=== PATIENT | female | born 1970 | race Caucasian/White ===

== ENCOUNTER 2016-08-27 22:45 | Emergency (ER) | payer MEDICARE, MEDICAID ==
[2016-08-27] MEDS ORDERED: NS 0.9% 1000 ML* 1,000 ML IV ONE (23:52)
[2016-08-27] MEDS ORDERED: Morphine INJ* 2 MG/ML 1 ML CARPUJECT IV ONE (23:52)
[2016-08-27] MEDS ORDERED: Ondansetron INJ* 2 MG/ML VIAL IV ONE (23:52)
[2016-08-28 00:45] LABS: Hematocrit 44 % (35-47); Hemoglobin 14.4 g/dl (12.0-16.0); Mean Corpuscular HGB Conc 33 g/dl (31-36); Mean Corpuscular Hemoglobin 30 pg (27-31); Mean Corpuscular Volume 92 fL (80-97); Mean Platelet Volume 9 um3 (7.4-10.4); Red Blood Count 4.76 10^6/ul (4.0-5.4); Red Cell Distribution Width 14 % (10.5-15); White Blood Count 10.9 10^3/ul (3.5-10.8)
[2016-08-28 00:53] LABS: ALT 10 U/L (7-52); AST 14 U/L (13-39); Albumin 3.9 g/dL (3.2-5.2); Alkaline Phosphatase 58 U/L (34-104); Anion Gap 6 mmol/L (2-11); BUN/Creatinine Ratio 11.6 (8-20); Blood Urea Nitrogen 14 mg/dL (6-24); CO2 Carbon Dioxide 27 mmol/L (22-32); Calcium 8.6 mg/dL (8.6-10.3); Chloride 106 mmol/L (101-111); EGFR African American 62.2 (>60); EGFR Non-African American 48.3 (>60); Globulin 2.6 g/dL (2-4); Glucose 83 mg/dL (70-100); Lipase 36 U/L (11.0-82.0); Sodium 139 mmol/L (133-145); Total Protein 6.5 g/dL (6.4-8.9)
[2016-08-28 00:56] LABS: Troponin I 0.01 ng/mL (<0.04)
[2016-08-28 00:59] LABS: Urine Bacteria Absent (Absent); Urine Bilirubin Negative (Negative); Urine Glucose Negative (Negative); Urine Nitrite Negative (Negative)
[2016-08-28] MEDS ORDERED: Iodixanol* (CONTRAST) 320 MG/ML 100 ML SDV IV ONE (01:53)
[2016-08-28 03:34] VITALS: BP 130/65
--- NOTE | 2016-08-28 03:44 | ED ---
Eden Pisano SooYoung, scribed for Shailesh Naik on 08/27/16 at 2349 . Abdominal Pain/Female - HPI Summary HPI Summary: A 45 y/o F presents to ED with c/o diffuse abd pain onset "a few days ago." Associated sx: vomiting, dysuria. Denies SOB, CP. No PSHx. Denies smoking, EtOH use. Pert PMHx: ulcers, GERD. - History of Current Complaint Chief Complaint: EDAbdPain Stated Complaint: ABD PAIN,PAIN WITH URINATION Hx Obtained From: Patient Onset/Duration: Lasting Days, Still Present Severity Currently: Moderate Pain Intensity: 5 Pain Scale Used: 0-10 Numeric Location: Diffuse Associated Signs and Symptoms: Positive: Urinary Symptoms - dysuria, Vomiting, Other: - neg: SOB. Negative: Chest Pain Allergies/Adverse Reactions: Allergies Allergy/AdvReac Type Severity Reaction Status Date / Time No Known Allergies Allergy Verified 08/27/16 22:46 PMH/Surg Hx/FS Hx/Imm Hx Previously Healthy: No GI History: Reports: Hx Gastroesophageal Reflux Disease, Hx Ulcer Infectious Disease History: No Infectious Disease History: Denies: Traveled Outside the [place] in Last 30 Days - Family History Known Family History: Positive: Cardiac Disease - father , Diabetes, Renal Disease - mother kidney failure, Other - [place] - Social History Occupation: Unemployed Lives: Alone Alcohol Use: None Hx Tobacco Use: No Review of Systems Negative: Chest Pain Negative: Shortness Of Breath Positive: Abdominal Pain, Vomiting Positive: dysuria All Other Systems Reviewed And Are Negative: Yes Physical Exam Triage Information Reviewed: Yes Vital Signs On Initial Exam: Initial Vitals Temp Pulse Resp BP Pulse Ox 99.6 F 64 18 114/56 95 08/27/16 22:46 08/27/16 22:46 08/27/16 22:46 08/27/16 22:46 08/27/16 22:46 Vital Signs Reviewed: Yes Appearance: Positive: Well-Appearing, No Pain Distress Skin: Positive: Warm, Skin Color Reflects Adequate Perfusion, Dry Head/Face: Positive: Normal Head/Face Inspection Eyes: Positive: EOMI, UMA ENT: Positive: Normal ENT inspection Neck: Positive: Supple, Nontender Respiratory/Lung Sounds: Positive: Clear to Auscultation, Breath Sounds Present Cardiovascular: Positive: RRR, Pulses are Symmetrical in both Upper and Lower Extremities Abdomen Description: Positive: Soft, Other: - POS: TENDERNESS AT RUQ and RLQ Bowel Sounds: Positive: Present Musculoskeletal: Positive: Normal, Strength/ROM Intact - 4XFROM Neurological: Positive: Normal, Sensory/Motor Intact, Alert, Oriented to Person Place, Time Diagnostics - Vital Signs Vital Signs Temp Pulse Resp BP Pulse Ox 08/27/16 22:46 99.6 F 64 18 114/56 95 - Laboratory Result Diagrams: 08/28/16 00:10 08/28/16 00:10 Lab Statement: Any lab studies that have been ordered have been reviewed, and results considered in the medical decision making process. - Radiology CXR Xray Interpretation: No Acute Changes Radiology Interpretation Completed By: ED Physician - CT A/P CT CT Interpretation: No Acute Changes - IMPRESSION: No inflammatory process identified in the abd or pelvis. No abd mass, adenopathy or collection seen. No explanation for this pt's abd pain. CT Interpretation Completed By: Radiologist - Ultrasound No standard instances Ultrasound Interpretation: Positive (See Comments) - GALLBLADDER US, IMPRESSION : Hyperechoic lesion in the R lobe of liver likely hemangioma. Otherwise nml appearance of the liver. Suboptimally distended gallbladder otherwise unremarkable. CBD wnl. Normal appearance of the R kidney. Limited pancreas. Visualized parenchyma is unremarkable. Ultrasound Interpretation Completed By: Radiologist - EKG 1 EKG Rhythm: Sinus Bradycardia Abdominal Pain Fem Course/Dx - Course Course Of Treatment: MDM: Pt is a 45 y/o F with abd pain, vomiting, and dysuria. Denies SOB, CP. Pt given Zofran and Morphine. A/P CT, Gallbladder US, EKG, CXR ordered. Dx: unspecified abd pain. Pt will be D/C with Protonix, and told to f/u with PCP in 3 days. - Diagnoses Provider Diagnoses: Pain, abdominal, nonspecific Discharge - Discharge Plan Condition: Stable Disposition: HOME Prescriptions: Pantoprazole TAB (NF) [Protonix TAB (NF)] 40 mg PO DAILY #30 tab Patient Education Materials: Pantoprazole (By mouth), Abdominal Pain (ED) Referrals: Amilcar Morris MD [Primary Care Provider] - 3 Days Additional Instructions: Follow up with your primary care provider in 3 days. Please return if you have new or worsening symptoms. The documentation as recorded by the Eden maguire,SooYoung accurately reflects the service I personally performed and the decisions made by me, Shailesh Naik.
--- NOTE | 2016-08-28 07:48 | RAD ---
HISTORY: Abdominal pain, pain with urination COMPARISONS: None VIEWS: 2: Frontal dual-energy and lateral views of the chest. FINDINGS: CARDIOMEDIASTINAL SILHOUETTE: The cardiomediastinal silhouette is normal. SUSANNA: The susanna are normal. PLEURA: The costophrenic angles are sharp. No pleural abnormalities are noted. LUNG PARENCHYMA: The lungs are clear. ABDOMEN: The upper abdomen is clear. There is no subphrenic gas. BONES AND SOFT TISSUES: No bone or soft tissue abnormalities are noted. OTHER: None. IMPRESSION: NO ACTIVE CARDIOPULMONARY DISEASE.
--- NOTE | 2016-08-28 07:53 | RAD ---
HISTORY: Generalized abdominal pain COMPARISONS: None TECHNIQUE: Multiple transverse and longitudinal ultrasound images were obtained of the right upper quadrant of the abdomen using grayscale and color Doppler imaging. FINDINGS: LIVER: There is a hypoechoic focus within the right lobe measuring 1.5 cm, suggestive of a hemangioma. There is normal hepatopedal flow of the portal vein on Doppler imaging. BILIARY TREE: There is no intrahepatic or extrahepatic biliary dilatation. The common duct measures between 0.3 and 0.7 cm. GALLBLADDER: The gallbladder is incompletely distended and is not well visualized. There is no appreciable pericholecystic fluid or gallbladder wall thickening or cholelithiasis. No sonographic Elias sign is reported. PANCREAS: The head of the pancreas is unremarkable. The tail of the pancreas is not well visualized secondary to overlying bowel gas. RIGHT KIDNEY: There is a parapelvic simple cyst on the right. There is no hydronephrosis or nephrolithiasis. The right kidney measures 9.5 x 4.4 x 5.2 cm. AORTA AND IVC: The aorta and IVC are unremarkable. FLUID: There are no pleural effusions. There is no free fluid within the hepatorenal recess. OTHER FINDINGS: None. IMPRESSION: 1. THE GALLBLADDER IS CONTRACTED WHICH LIMITS EVALUATION. THERE ARE NO SONOGRAPHIC FEATURES OF ACUTE CHOLECYSTITIS. 2. HYPERECHOIC LESION OF THE LIVER MOST CONSISTENT WITH HEMANGIOMA
--- NOTE | 2016-08-28 08:02 | RAD ---
CLINICAL HISTORY: Lower abdominal pain, burning with urination COMPARISON: None TECHNIQUE: Multiple contiguous axial CT scans were obtained of the abdomen and pelvis after the administration of intravenous contrast. Coronal and sagittal multiplanar reformations are submitted for review. Oral contrast was administered. Delayed images were obtained through the abdomen FINDINGS: LUNG BASES: The lung bases are clear. LIVER: There is focal hypoattenuation of the right lobe of liver measuring 1.4 cm in size. This density is minimal peripheral enhancement BILE DUCTS: There is no intrahepatic or extrahepatic biliary dilatation. GALLBLADDER: The gallbladder it is incompletely and is not well evaluated, but is grossly normal for technique. PANCREAS: The pancreas is normal, without mass or ductal dilatation. SPLEEN: Normal in size and appearance. UPPER GI TRACT: Evaluation of the gastrointestinal tract is limited by incomplete gastric distention. The upper GI tract is unremarkable. SMALL BOWEL AND MESENTERY: The small bowel is normal in contour, course, and caliber. There is no obstruction or dilatation. COLON: The colon is normal in contour, course, caliber. There is no pericolonic inflammatory change. The appendix not clearly identified. There is no inflammatory change within the right lower quadrant. ADRENALS: Normal bilaterally. KIDNEYS: The kidneys are normal in shape, size, contour, and axis. There is no hydronephrosis or nephrolithiasis. BLADDER: The bladder is smooth in contour. PELVIC ORGANS: There is a 2 cm cyst of the left ovary. This may represent a hemorrhagic cyst. The pelvic organs are otherwise normal for patient age and technique. AORTA: The aorta is normal. IVC: Unremarkable LYMPH NODES: There is no lymphadenopathy by size criteria. ABDOMINAL WALL: There is no evidence for abdominal wall hernia. BONES AND SOFT TISSUES: There are mild degenerative changes, most now set L5-S1. OTHER: None IMPRESSION: 1. THE APPENDIX IS NOT VISUALIZED. THERE IS NO INFLAMMATORY CHANGE OF THE RIGHT LOWER QUADRANT. 2. LEFT OVARIAN CYST, POSSIBLY HEMORRHAGIC CYST. 3. LOW-ATTENUATION LESION OF THE LIVER THAT MAY REPRESENT A SMALL HEMANGIOMA, THOUGH THE IMAGING APPEARANCE IS INDETERMINATE.
== END 2016-08-28 03:20 | disposition home or self-care (01) ==
LOC: ED 22:45
DX: R10.9 Unspecified abdominal pain (principal); K21.9 Gastro-esophageal reflux disease without esophagitis
CPT/HCPCS: 36415; 71020; 74177; 76705; 80053; 81003; 81015; 83690; 84484; 84702; 85025; 85610; 85730; 87086; 93005; 99284; J2270; J2405; Q9967

== ENCOUNTER 2016-09-01 04:44 | Emergency (ER) | payer MEDICARE, MEDICAID ==
[2016-09-01] MEDS ORDERED: Ondansetron ODT TAB* 4 MG PO ONE ×2 (05:01→06:00)
[2016-09-01] MEDS ORDERED: Ondansetron ODT TAB* 4 MG ONE (05:03)
--- NOTE | 2016-09-01 05:58 | ED ---
Candida Pisano Janilya, scribed for Elder Serrano MD on 09/01/16 at 0506 . GI/ HPI - HPI Summary HPI Summary: A 45 y/o female came in to [facility] presenting w/ a gradual onset of constant nausea, vomiting, diarrhea starting approximately at 0300 this morning. Up to this time, pt states she has thrown up twice and has had diarrhea also twice. Pt reports she took Tums with no relief. Nothing makes the Sx better or worse. Last night, she had pork chops and casserole for dinner. - History of Current Complaint Chief Complaint: EDNauseaVomitDiarrh Time Seen by Provider: 09/01/16 04:57 Stated Complaint: FLU LIKE SYMPTOMS Hx Obtained From: Patient Onset/Duration: Started Hours Ago, Atraumatic, Still Present Timing: Constant, Lasting Hours Severity: Moderate Current Severity: Moderate Pain Intensity: 6 Associated Signs and Symptoms: Positive: Nausea, Vomiting, Diarrhea Aggravating Factor(s): Nothing Alleviating Factor(s): Nothing - Allergy/Home Medications Allergies/Adverse Reactions: Allergies Allergy/AdvReac Type Severity Reaction Status Date / Time No Known Allergies Allergy Verified 08/27/16 22:46 PMH/Surg Hx/FS Hx/Imm Hx Previously Healthy: Yes Endocrine/Hematology History: Denies: Hx Diabetes Cardiovascular History: Denies: Hx Hypertension GI History: Reports: Hx Gastroesophageal Reflux Disease, Hx Ulcer History: Denies: Hx Dialysis, Hx Renal Disease Infectious Disease History: No Infectious Disease History: Denies: Traveled Outside the [place] in Last 30 Days - Family History Known Family History: Positive: Cardiac Disease - father , Diabetes, Renal Disease - mother kidney failure, Other - [place] - Social History Alcohol Use: None Substance Use Type: Reports: None Substance Use Comment - Amount & Last Used: pt denies Hx Tobacco Use: No Smoking Status (MU): Never Smoked Tobacco Review of Systems Negative: Fever Positive: Vomiting, Diarrhea, Nausea All Other Systems Reviewed And Are Negative: Yes Physical Exam Triage Information Reviewed: Yes Vital Signs On Initial Exam: Initial Vitals Temp Pulse Resp BP Pulse Ox 98.4 F 66 16 116/67 99 09/01/16 04:49 09/01/16 04:49 09/01/16 04:49 09/01/16 04:49 09/01/16 04:49 Vital Signs Reviewed: Yes Appearance: Positive: Well-Appearing, No Pain Distress - malodorous Skin: Positive: Warm Eyes: Positive: UMA ENT: Positive: Hearing grossly normal Neck: Positive: Supple Respiratory/Lung Sounds: Positive: Breath Sounds Present Cardiovascular: Positive: Normal Abdomen Description: Positive: Nontender, No Organomegaly, Soft Bowel Sounds: Positive: Present Musculoskeletal: Positive: Strength/ROM Intact Neurological: Positive: Alert, Oriented to Person Place, Time Diagnostics - Vital Signs Vital Signs Temp Pulse Resp BP Pulse Ox 09/01/16 04:49 98.4 F 66 16 116/67 99 - Laboratory Lab Statement: Any lab studies that have been ordered have been reviewed, and results considered in the medical decision making process. Re-Evaluation - Re-Evaluation First Eval Re-Evaluation Time: 05:59 - tolerating po Change: Improved GIGU Course/Dx - Diagnoses Provider Diagnoses: Gastroenteritis Discharge - Discharge Plan Condition: Improved Disposition: HOME Patient Education Materials: Gastroenteritis (ED) The documentation as recorded by the Candida maguire Janilya accurately reflects the service I personally performed and the decisions made by Zach maurer David, MD.
[2016-09-01 06:42] VITALS: BP 126/96
== END 2016-09-01 06:42 | disposition home or self-care (01) ==
LOC: ED 04:44
DX: K52.9 Noninfective gastroenteritis and colitis, unspecified (principal); F41.9 Anxiety disorder, unspecified; K21.9 Gastro-esophageal reflux disease without esophagitis
CPT/HCPCS: 99283; A9270-GY

== ENCOUNTER 2016-09-01 18:54 | Emergency (ER) | payer MEDICARE, MEDICAID ==
[2016-09-01] MEDS ORDERED: Ondansetron ODT TAB* 4 MG PO ONE (21:58)
--- NOTE | 2016-09-01 22:08 | ED ---
Complex/Multi-Sys Presentation - HPI Summary HPI Summary: 45 female presents complaining of having an anxiety attack, nausea and feeling very cold that started today 09/01/16. Patient states she has been dealing with anxiety all day today intermittently. She feels tightness in her chest that lasts a few seconds and goes away. She complains of feeling cold and being unable to get warm. She also is nauseous that she states is from the anxiety. She denies difficulty breathing, abdominal pain, vomiting, constipation, fever/ chills, numbness/tingling and shaking. Admits to having headaches on and off. She does not know why she is having anxiety and denies any stressors. States she was in the ED last night and was given anti nausea medication that helped her but was not given anything for her anxiety. She was also seen on 08/28/16 for abdominal pain and diagnosed with ulcers/gerd after throughout testing. Denies use of alcohol and drugs. Denies suicidal homicidal thoughts. PMHx of ulcer, GERD and anxiety since last year when her boyfriend . She was taking Lorazepam however has been out of it for the past month. - History Of Current Complaint Chief Complaint: EDGeneral Time Seen by Provider: 09/01/16 21:01 Hx Obtained From: Patient Onset/Duration: Sudden Onset Timing: Intermittent, Lasting: Severity Currently: Mild Severity Initially: Mild Associated Signs And Symptoms: Positive: Headache, Nausea, Other - cold. Negative: Chest Pain, Palpitations, Fever - Allergies/Home Medications Allergies/Adverse Reactions: Allergies Allergy/AdvReac Type Severity Reaction Status Date / Time No Known Allergies Allergy Verified 08/27/16 22:46 PMH/Surg Hx/FS Hx/Imm Hx Endocrine/Hematology History: Denies: Hx Diabetes Cardiovascular History: Denies: Hx Hypertension GI History: Reports: Hx Gastroesophageal Reflux Disease, Hx Ulcer History: Denies: Hx Dialysis, Hx Renal Disease Psychiatric History: Reports: Hx Anxiety Infectious Disease History: No Infectious Disease History: Denies: Traveled Outside the [place] in Last 30 Days - Family History Known Family History: Positive: Cardiac Disease - father , Diabetes, Renal Disease - mother kidney failure, Other - [place] - Social History Alcohol Use: None Substance Use Type: Reports: None Substance Use Comment - Amount & Last Used: pt denies Hx Tobacco Use: No Smoking Status (MU): Never Smoked Tobacco Review of Systems Constitutional: Negative Eyes: Negative ENT: Negative Cardiovascular: Negative Respiratory: Negative Positive: Nausea, Other - she's cold Genitourinary: Negative Musculoskeletal: Negative Skin: Negative Positive: Headache Positive: Anxious, Depressed All Other Systems Reviewed And Are Negative: Yes Physical Exam Triage Information Reviewed: Yes Vital Signs On Initial Exam: Initial Vitals Temp Pulse Resp BP Pulse Ox 97.6 F 59 22 136/96 100 09/01/16 18:59 09/01/16 18:59 09/01/16 18:59 09/01/16 18:59 09/01/16 18:59 temperature was re-checked and 98.6 F taken orally Vital Signs Reviewed: Yes Appearance: Positive: Well-Appearing - A&Ox3, appeared to un-bathed, covered under multiple blankets, No Pain Distress, Well-Nourished Skin: Positive: Warm, Skin Color Reflects Adequate Perfusion, Dry Head/Face: Positive: Normal Head/Face Inspection Eyes: Positive: Normal ENT: Positive: Normal ENT inspection, Hearing grossly normal, Pharynx normal, TMs normal Neck: Positive: Supple, Nontender, No Lymphadenopathy Respiratory/Lung Sounds: Positive: Clear to Auscultation, Breath Sounds Present Cardiovascular: Positive: Normal, RRR, Pulses are Symmetrical in both Upper and Lower Extremities Abdomen Description: Positive: Nontender, No Organomegaly, Soft Bowel Sounds: Positive: Present Musculoskeletal: Positive: Normal Neurological: Positive: Normal, Sensory/Motor Intact, Alert, Oriented to Person Place, Time Psychiatric: Positive: Depressed Diagnostics - Vital Signs Vital Signs Temp Pulse Resp BP Pulse Ox 09/01/16 20:32 100.6 F 65 18 98/68 100 09/01/16 18:59 97.6 F 59 22 136/96 100 - Laboratory Lab Statement: Any lab studies that have been ordered have been reviewed, and results considered in the medical decision making process. Re-Evaluation - Re-Evaluation First Eval Re-Evaluation Time: 22:46 Change: Improved - relief after medications administered Complex Multi-Symp Course/Dx Course Of Treatment: Patient was given zofran and a small dose of ativan to help with her symptoms. told to follow up with her doctor that prescribed her the lorzepam before. offered to meet with the crisis team however denied and stated she would talk to her doctor during her appointment this thursday. will be given zofran to take home for nausea. Patient was seen earlier this morning by Dr Cherry and had to be escorted out of the hospital. - Diagnoses Provider Diagnoses: Anxiety Discharge - Discharge Plan Condition: Stable Disposition: HOME Prescriptions: Ondansetron ODT TAB* [Zofran Odt TAB*] 4 mg PO Q8H PRN #5 tab.odt PRN Reason: Nausea Patient Education Materials: Anxiety (ED) Referrals: No Primary Care Phys,NOPCP [Primary Care Provider] - Additional Instructions: Take medication as prescribed to help with nausea. Please follow up with your primary care provider Thursday09/03/16 and get a referral to a psychiatrist to help manage your anxiety. If symptoms persist or worsen such as chest pain or difficulty breathing please return to ED.
[2016-09-01] MEDS ORDERED: LORazepam TAB(*) 0.5 MG PO ONE (22:12)
[2016-09-01 23:19] VITALS: BP 113/62
== END 2016-09-01 23:10 | disposition home or self-care (01) ==
LOC: ED 18:54
DX: F41.9 Anxiety disorder, unspecified (principal); K21.9 Gastro-esophageal reflux disease without esophagitis
CPT/HCPCS: 99283; A9270-GY

== ENCOUNTER 2016-09-04 22:29 | Emergency (ER) | payer MEDICARE, MEDICAID ==
[2016-09-04 22:37] VITALS: BP 128/70
[2016-09-04] MEDS ORDERED: diPHENhydraMINE PO* 25 MG PO ONE (22:45)
--- NOTE | 2016-09-04 22:49 | ED ---
Roly Pisano Benjamin, scribed for Elder Serrano MD on 09/04/16 at 2247 . Complex/Multi-Sys Presentation - HPI Summary HPI Summary: 45yo female c/o sleep difficulties with anxiety abd vomiting. Pt was seen several times recently for the same symptoms. - History Of Current Complaint Chief Complaint: EDGeneral Time Seen by Provider: 09/04/16 22:38 Hx Obtained From: Patient Onset/Duration: Gradual Onset, Lasting Hours, Still Present Timing: Constant Severity Currently: Mild Severity Initially: Mild Location: Negative Associated Signs And Symptoms: Positive: Vomiting, Other - anxiety - Allergies/Home Medications Allergies/Adverse Reactions: Allergies Allergy/AdvReac Type Severity Reaction Status Date / Time No Known Allergies Allergy Verified 08/27/16 22:46 PMH/Surg Hx/FS Hx/Imm Hx Endocrine/Hematology History: Denies: Hx Diabetes Cardiovascular History: Denies: Hx Hypertension GI History: Reports: Hx Gastroesophageal Reflux Disease, Hx Ulcer History: Denies: Hx Dialysis, Hx Renal Disease Psychiatric History: Reports: Hx Anxiety Infectious Disease History: No Infectious Disease History: Denies: Traveled Outside the [place] in Last 30 Days - Family History Known Family History: Positive: Cardiac Disease - father , Diabetes, Renal Disease - mother kidney failure, Other - [place] - Social History Alcohol Use: None Substance Use Type: Reports: None Substance Use Comment - Amount & Last Used: pt denies Hx Tobacco Use: No Smoking Status (MU): Never Smoked Tobacco Review of Systems Constitutional: Negative Eyes: Negative ENT: Negative Cardiovascular: Negative Respiratory: Negative Positive: Vomiting Genitourinary: Negative Musculoskeletal: Negative Skin: Negative Neurological: Negative Positive: Anxious All Other Systems Reviewed And Are Negative: Yes Physical Exam Triage Information Reviewed: Yes Vital Signs On Initial Exam: Initial Vitals Temp Pulse Resp BP Pulse Ox 98.3 F 70 16 128/70 100 09/04/16 22:34 09/04/16 22:34 09/04/16 22:34 09/04/16 22:34 09/04/16 22:34 Vital Signs Reviewed: Yes Appearance: Positive: Well-Appearing, No Pain Distress Skin: Positive: Warm Eyes: Positive: UMA ENT: Positive: Hearing grossly normal Respiratory/Lung Sounds: Positive: Breath Sounds Present Cardiovascular: Positive: Normal Abdomen Description: Positive: Nontender, Soft Neurological: Positive: Sensory/Motor Intact, Alert, Oriented to Person Place, Time, Normal Gait Diagnostics - Vital Signs Vital Signs Temp Pulse Resp BP Pulse Ox 09/04/16 22:34 98.3 F 70 16 128/70 100 - Laboratory Lab Statement: Any lab studies that have been ordered have been reviewed, and results considered in the medical decision making process. Re-Evaluation - Re-Evaluation First Eval Comment: INFORMED PT THAT SHE WILL NEED TO GET MEDS FPOR ANXIETY FROM PCP, HAS BEEN TO ED SEVERAL TIMRS FOR SAME Complex Multi-Symp Course/Dx - Diagnoses Provider Diagnoses: Anxiety, Insomnia Discharge - Discharge Plan Condition: Stable Disposition: HOME Patient Education Materials: Insomnia (ED), Anxiety (ED) The documentation as recorded by the Roly maguire Benjamin accurately reflects the service I personally performed and the decisions made by me, Elder Serrano MD.
== END 2016-09-04 23:00 | disposition home or self-care (01) ==
LOC: ED 22:29
DX: F41.9 Anxiety disorder, unspecified (principal); R11.10 Vomiting, unspecified; G47.00 Insomnia, unspecified
CPT/HCPCS: 99282; A9270-GY

== ENCOUNTER 2016-09-16 04:13 | Emergency (ER) | payer MEDICARE, MEDICAID ==
[2016-09-16] MEDS ORDERED: Ondansetron ODT TAB* 4 MG PO ONE (04:31)
--- NOTE | 2016-09-16 04:58 | ED ---
London Pisano Rebecca, scribed for Elder Serrano MD on 09/16/16 at 0434 . Abdominal Pain/Female - HPI Summary HPI Summary: Pt is a 45 y/o F who presents to ED c/o sharp abd pain. Pain began suddenly at 0200 and has been constant since onset. Pain is diffuse without radiation and is currently moderate, ranked 4/10. Sx aggravated and alleviated by nothing. Additionally c/o nausea and rhinorrhea. Denies vomiting. - History of Current Complaint Chief Complaint: EDAbdPain Stated Complaint: GENERAL ILLNESS Time Seen by Provider: 09/16/16 04:29 Hx Obtained From: Patient Onset/Duration: Sudden Onset, Lasting Hours - 2.5 hours, Still Present Timing: Constant Severity Initially: Moderate Severity Currently: Moderate Pain Intensity: 4 Pain Scale Used: 0-10 Numeric Location: Diffuse Radiates: No Character: Sharp Aggravating Factor(s): Nothing Alleviating Factor(s): Nothing Associated Signs and Symptoms: Positive: Nausea, Other: - Rhinorrhea Allergies/Adverse Reactions: Allergies Allergy/AdvReac Type Severity Reaction Status Date / Time No Known Allergies Allergy Verified 08/27/16 22:46 PMH/Surg Hx/FS Hx/Imm Hx Endocrine/Hematology History: Denies: Hx Diabetes Cardiovascular History: Denies: Hx Hypertension GI History: Reports: Hx Gastroesophageal Reflux Disease, Hx Ulcer History: Denies: Hx Dialysis, Hx Renal Disease Psychiatric History: Reports: Hx Anxiety Infectious Disease History: No Infectious Disease History: Denies: Traveled Outside the [place] in Last 30 Days - Family History Known Family History: Positive: Cardiac Disease - father , Diabetes, Renal Disease - mother kidney failure, Other - [place] - Social History Alcohol Use: None Substance Use Type: Reports: None Substance Use Comment - Amount & Last Used: pt denies Hx Tobacco Use: No Smoking Status (MU): Never Smoked Tobacco Review of Systems Positive: Nasal Discharge Positive: Abdominal Pain - moderate, diffuse, Nausea. Negative: Vomiting All Other Systems Reviewed And Are Negative: Yes Physical Exam Triage Information Reviewed: Yes Vital Signs On Initial Exam: Initial Vitals Temp Pulse Resp BP Pulse Ox 98.4 F 58 18 132/71 99 09/16/16 04:19 09/16/16 04:19 09/16/16 04:19 09/16/16 04:19 09/16/16 04:19 Vital Signs Reviewed: Yes Appearance: Positive: Well-Appearing, No Pain Distress Skin: Positive: Warm Head/Face: Positive: Normal Head/Face Inspection ENT: Positive: Hearing grossly normal Neck: Positive: Supple Respiratory/Lung Sounds: Positive: Clear to Auscultation, Breath Sounds Present Cardiovascular: Positive: Normal Abdomen Description: Positive: Nontender, No Organomegaly, Soft Bowel Sounds: Positive: Present Neurological: Positive: Alert, Oriented to Person Place, Time Psychiatric: Positive: Anxious Diagnostics - Vital Signs Vital Signs Temp Pulse Resp BP Pulse Ox 09/16/16 04:19 98.4 F 58 18 132/71 99 - Laboratory Lab Statement: Any lab studies that have been ordered have been reviewed, and results considered in the medical decision making process. Re-Evaluation - Re-Evaluation First Eval Change: Improved Abdominal Pain Fem Course/Dx - Course Course Of Treatment: Pt is a 45 y/o F who presents to ED with a CC of sharp, moderate abd pain since 0200 this morning. Additionally c/o nausea and rhinorrhea. Denies vomiting. Both rapid influenza A and B returned negative. Pt will be d/c to home with a dx of nausea and viral syndrome with a follow up with her PCP. Pt is agreeable with this plan. - Diagnoses Provider Diagnoses: Nausea, Viral syndrome Discharge - Discharge Plan Condition: Stable Disposition: HOME Patient Education Materials: Viral Syndrome (ED) Referrals: Arturo ORANTES,Jerome Hess [Primary Care Provider] - 3 Days (Follow up with your primary care physician in the next 3 days. ) The documentation as recorded by the London maguire Rebecca accurately reflects the service I personally performed and the decisions made by , Elder Serrano MD.
[2016-09-16 05:26] VITALS: BP 114/77
== END 2016-09-16 05:34 | disposition home or self-care (01) ==
LOC: ED 04:13
DX: J34.89 Other specified disorders of nose and nasal sinuses (principal); B34.9 Viral infection, unspecified; R11.0 Nausea
CPT/HCPCS: 87502; 99282; A9270-GY

== ENCOUNTER 2016-09-22 11:06 | Emergency (ER) | payer MEDICARE, MEDICAID ==
[2016-09-22 11:40] VITALS: BP 109/72
--- NOTE | 2016-09-22 11:54 | UC ---
Throat Pain/Nasal Madhav HPI - HPI Summary HPI Summary: ST, nasal congestion, cough starting yesterday. Denies fever or trouble breathing. Worried she's coming down with a cold, wants medicine before it gets bad. - History of Current Complaint Chief Complaint: UCGeneralIllness Stated Complaint: COUGH,SINUS COMPLAINT Time Seen by Provider: 09/22/16 11:42 Hx Obtained From: Patient Hx Last Menstrual Period: 09/01/16 ?: No Onset/Duration: Gradual Onset, Lasting Days Severity: Mild Cough: Productive Associated Signs & Symptoms: Positive: Nasal Discharge. Negative: Fever, Vomiting - Allergies/Home Medications Allergies/Adverse Reactions: Allergies Allergy/AdvReac Type Severity Reaction Status Date / Time No Known Allergies Allergy Verified 08/27/16 22:46 PMH/Surg Hx/FS Hx/Imm Hx Endocrine History Of: Denies: Diabetes Cardiovascular History Of: Denies: Hypertension GI/ History Of: Reports: Ulcer Denies: Renal Disease Psychological History Of: Reports: Anxiety - Surgical History Surgical History: None - Family History Known Family History: Positive: Cardiac Disease - father , Diabetes, Renal Disease - mother kidney failure, Other - [place] - Social History Lives: Alone Alcohol Use: None Substance Use Type: None Substance Use Comment - Amount & Last Used: pt denies Smoking Status (MU): Never Smoked Tobacco Review of Systems Constitutional: Negative Skin: Negative Eyes: Negative ENT: Sore Throat, Nasal Discharge Respiratory: Cough Cardiovascular: Negative Gastrointestinal: Negative Genitourinary: Negative Motor: Negative Neurovascular: Negative Musculoskeletal: Negative Neurological: Negative Psychological: Negative All Other Systems Reviewed And Are Negative: Yes Physical Exam Triage Information Reviewed: Yes Appearance: No Pain Distress, Well-Nourished, Other: - poor grooming, strong body odor Vital Signs: Initial Vital Signs Temp 98.9 F 09/22/16 11:35 Pulse 60 09/22/16 11:35 Resp 16 09/22/16 11:35 BP 109/72 09/22/16 11:35 Pulse Ox 99 09/22/16 11:35 Vital Signs Reviewed: Yes Eye Exam: Normal Eyes: Positive: Conjunctiva Clear ENT: Positive: Hearing grossly normal, Nasal congestion, Nasal drainage, TMs normal. Negative: Tonsillar swelling, Tonsillar exudate Dental Exam: Normal Neck exam: Normal Neck: Positive: Supple, Nontender, No Lymphadenopathy Respiratory Exam: Normal Respiratory: Positive: Chest non-tender, Lungs clear, Normal breath sounds, No respiratory distress, No accessory muscle use Cardiovascular Exam: Normal Cardiovascular: Positive: RRR, No Murmur Musculoskeletal Exam: Normal Neurological Exam: Normal Psychological Exam: Normal Skin Exam: Normal Throat Pain/Nasal Course/Dx - Differential Dx/Diagnosis Provider Diagnoses: URI, likely viral Discharge - Discharge Plan Condition: Stable Disposition: HOME Patient Education Materials: Upper Respiratory Infection (ED) Referrals: Arturo ORANTES,Jerome Hess [Primary Care Provider] - If Needed Additional Instructions: a DECONGESTANT can help with your stuffiness and sinuses. The most effective decongestant is Pseudoephedrine (Sudafed or generic), but you need to ask the pharmacist as it is kept behind the counter. ANTIHISTAMINES are generally NOT helpful in many colds and flus, as they can worsen sore throat and cause dry eyes/mouth and drowsiness. Antihistamines are nearly always found in "nighttime" medicines for their sedating properties ( such as Nyquil). Examples are Diphenhydramine HCL, Doxylamine, and Chlorpheniramine. They may help if you are having profuse clear drainage from the nose. an EXPECTORANT helps thin mucous in the nose and in the chest, making it easier to clear out. Expectorants are in most combination cough/cold remedies and should be taken with plenty of water. Guaifenesin is the most common expectorant , and comes in pill or liquid form (Mucinex is an extended-release form of guaifenesin). a COUGH SUPPRESSANT reduces the body's cough reflex. Dextromethorphan is in over -the-counter products, but sometimes narcotics (such as codeine or hydrocodone) are used for their cough suppressant properties.
== END 2016-09-22 12:01 | disposition home or self-care (01) ==
LOC: UCCORT 11:06
DX: J06.9 Acute upper respiratory infection, unspecified (principal)
CPT/HCPCS: 99211; G0463

== ENCOUNTER 2016-09-29 22:44 | Emergency (ER) | payer MEDICARE, MEDICAID ==
[2016-09-29] MEDS ORDERED: Acetaminophen TAB* 325 MG PO ONE (23:31)
--- NOTE | 2016-09-29 23:58 | ED ---
Ursula Pisano Erika, scribed for Elder Serrano MD on 09/29/16 at 2335 . Headache - HPI Summary HPI Summary: Patient is a 45-year-old female presenting to the ED with a CC of headache today. Patient reports that she has taking 1600 mg ibuprofen for the pain, but it has not alleviated the pain. Patient also reports abdominal pain with a Hx GERD. Pt reports she has been taking her GERD medication without relief, and she saw her PCP on 09/26/2016 who recommended she keep taking her medication for at least 1 month to see if symptoms improve. - History Of Current Complaint Chief Complaint: ED Stated Complaint: HEADACHE Hx Obtained From: Patient Hx Last Menstrual Period: 09/01/16 Onset/Duration: Gradual Onset, Started hours ago, Still Present Currently Pain Is: Moderate Timing: Constant Character: Typical Headache Allevating Factors: Nothing Associated Signs And Symptoms: Negative - Allergies/Home Medications Allergies/Adverse Reactions: Allergies Allergy/AdvReac Type Severity Reaction Status Date / Time No Known Allergies Allergy Verified 08/27/16 22:46 PMH/Surg Hx/FS Hx/Imm Hx Endocrine/Hematology History: Denies: Hx Diabetes Cardiovascular History: Denies: Hx Hypertension GI History: Reports: Hx Gastroesophageal Reflux Disease, Hx Ulcer History: Denies: Hx Dialysis, Hx Renal Disease Psychiatric History: Reports: Hx Anxiety Infectious Disease History: No Infectious Disease History: Denies: Traveled Outside the [place] in Last 30 Days - Family History Known Family History: Positive: Cardiac Disease - father , Diabetes, Renal Disease - mother kidney failure, Other - [place] - Social History Alcohol Use: None Substance Use Type: Reports: None Substance Use Comment - Amount & Last Used: pt denies Hx Tobacco Use: No Smoking Status (MU): Never Smoked Tobacco Review of Systems Positive: Abdominal Pain Positive: Headache All Other Systems Reviewed And Are Negative: Yes Physical Exam Triage Information Reviewed: Yes Vital Signs On Initial Exam: Initial Vitals Temp Pulse Resp BP Pulse Ox 97.8 F 55 16 109/70 100 09/29/16 22:52 09/29/16 22:52 09/29/16 22:52 09/29/16 22:52 09/29/16 22:52 Vital Signs Reviewed: Yes Appearance: Positive: Well-Appearing, No Pain Distress Skin: Positive: Warm Head/Face: Positive: Normal Head/Face Inspection Eyes: Positive: UMA ENT: Positive: Hearing grossly normal Neck: Positive: Supple Respiratory/Lung Sounds: Positive: Breath Sounds Present Cardiovascular: Positive: RRR Abdomen Description: Positive: Nontender, No Organomegaly, Soft Bowel Sounds: Positive: Present Musculoskeletal: Positive: Strength/ROM Intact Neurological: Positive: Sensory/Motor Intact, Alert, Oriented to Person Place, Time, Normal Gait Psychiatric: Positive: Affect/Mood Appropriate Diagnostics - Vital Signs Vital Signs Temp Pulse Resp BP Pulse Ox 09/29/16 22:52 97.8 F 55 16 109/70 100 - Laboratory Lab Statement: Any lab studies that have been ordered have been reviewed, and results considered in the medical decision making process. Headache Course/Dx - Course Assessment/Plan: A 45 y/o F presents to the ED with a CC of headache and abdominal pain. Pt was advised by her PCP to continue taking GERD medication for 1 month and see if abdominal pain episodes decrease, so pt was advised to follow this plan. Pt was given acetaminophen for the headache. Pt will be discharged home with follow up from her PCP and Gastro. - Diagnoses Provider Diagnoses: Abdominal pain Discharge - Discharge Plan Condition: Stable Disposition: HOME Patient Education Materials: Acute Headache (ED), Abdominal Pain (ED) Referrals: Magaly Acevedo NP [Primary Care Provider] - Maikel Colorado MD [Medical Doctor] - The documentation as recorded by the Ursula maguire Erika accurately reflects the service I personally performed and the decisions made by me, Elder Serrano MD.
[2016-09-30 00:39] VITALS: BP 119/81
== END 2016-09-30 00:49 | disposition home or self-care (01) ==
LOC: ED 22:44
DX: R10.9 Unspecified abdominal pain (principal); R51 Headache; K21.9 Gastro-esophageal reflux disease without esophagitis
CPT/HCPCS: 99282; A9270-GY

== ENCOUNTER 2016-09-30 18:53 | Emergency (ER) | payer MEDICARE, MEDICAID ==
[2016-09-30 19:00] VITALS: BP 108/76
--- NOTE | 2016-09-30 20:19 | ED ---
Ursula Pisano Erika, scribed for Elder Serrano MD on 09/30/16 at 1924 . Headache - HPI Summary HPI Summary: Patient is a 45-year-old female presenting to the ED with a CC of headache worse since 18:00 today. Patient was seen in the ED last night for the same complaint, and was instructed to alternate between ibuprofen and acetaminophen. Patient reports that the acetaminophen given last night improved the symptoms. Today, she took ibuprofen, which she states only alleviated the symptoms temporarily and then they returned. She describes the headache as pounding. Associated symptoms include throbbing bilateral ear pain and nausea. Patient reports that she was seen at her PCP today for her abdominal pain, and had an US at [facility]. - History Of Current Complaint Chief Complaint: EDHeadache Stated Complaint: HEADACHE Time Seen by Provider: 09/30/16 19:11 Hx Obtained From: Patient Hx Last Menstrual Period: 09/01/16 Onset/Duration: Gradual Onset, Started days ago, Worse Since - 18:00 Initially Headache Was: Mild Currently Pain Is: Moderate Timing: Intermittent, Lasting:, Hours Character: Throbbing Aggravating Factor: Nothing Allevating Factors: Medication - temporarily Associated Signs And Symptoms: Nausea - Allergies/Home Medications Allergies/Adverse Reactions: Allergies Allergy/AdvReac Type Severity Reaction Status Date / Time No Known Allergies Allergy Verified 08/27/16 22:46 PMH/Surg Hx/FS Hx/Imm Hx Endocrine/Hematology History: Denies: Hx Diabetes Cardiovascular History: Denies: Hx Hypertension GI History: Reports: Hx Gastroesophageal Reflux Disease, Hx Ulcer History: Denies: Hx Dialysis, Hx Renal Disease Psychiatric History: Reports: Hx Anxiety Infectious Disease History: No Infectious Disease History: Denies: Traveled Outside the [place] in Last 30 Days - Family History Known Family History: Positive: Cardiac Disease - father , Diabetes, Renal Disease - mother kidney failure, Other - [place] - Social History Alcohol Use: None Substance Use Type: Reports: None Substance Use Comment - Amount & Last Used: pt denies Hx Tobacco Use: No Smoking Status (MU): Never Smoked Tobacco Review of Systems Positive: Ear Ache - bilateral Positive: Nausea Positive: Headache All Other Systems Reviewed And Are Negative: Yes Physical Exam Triage Information Reviewed: Yes Vital Signs On Initial Exam: Initial Vitals Temp Pulse Resp BP Pulse Ox 97.7 F 54 16 108/76 100 09/30/16 18:56 09/30/16 18:56 09/30/16 18:56 09/30/16 18:56 09/30/16 18:56 Vital Signs Reviewed: Yes Appearance: Positive: Well-Appearing, No Pain Distress Skin: Positive: Warm Eyes: Positive: Normal ENT: Positive: Hearing grossly normal Neck: Positive: Supple Respiratory/Lung Sounds: Positive: Clear to Auscultation, Breath Sounds Present Cardiovascular: Positive: Normal Abdomen Description: Positive: Nontender, Soft Bowel Sounds: Positive: Present Musculoskeletal: Positive: Strength/ROM Intact Neurological: Positive: Sensory/Motor Intact, Alert, Oriented to Person Place, Time Psychiatric: Positive: Affect/Mood Appropriate Diagnostics - Vital Signs Vital Signs Temp Pulse Resp BP Pulse Ox 09/30/16 18:56 97.7 F 54 16 108/76 100 - Laboratory Lab Statement: Any lab studies that have been ordered have been reviewed, and results considered in the medical decision making process. Headache Course/Dx - Course Assessment/Plan: A 45 y/o F presents to the ED with a CC of headache. Pt was seen last night for the same complaint. Pt reports symptoms were alleviated by Tylenol last night, and were temporarily alleviated by ibuprofen today. Symptoms returned, so patient came to the ED. Patient was recommended to alternate between ibuprofen and acetaminophen, and follow up with her PCP. Pt was discharged from the ED with follow up. - Diagnoses Provider Diagnoses: GENERAL HEADACHE Discharge - Discharge Plan Condition: Stable Disposition: HOME Patient Education Materials: General Headache (ED) Referrals: Magaly Acevedo NP [Primary Care Provider] - Additional Instructions: Please alternate between Tylenol and Motrin for the pain, following medication instructions. Please follow up with your PCP. The documentation as recorded by the Ursula maguire Erika accurately reflects the service I personally performed and the decisions made by me, Elder Serrano MD.
== END 2016-09-30 19:46 | disposition home or self-care (01) ==
LOC: ED 18:53
DX: R51 Headache (principal); R11.0 Nausea
CPT/HCPCS: 99282

== ENCOUNTER 2016-10-03 10:40 | Emergency (ER) | payer MEDICARE, MEDICAID ==
[2016-10-03 12:18] VITALS: BP 110/70
--- NOTE | 2016-10-03 12:35 | UC ---
Hand/Wrist HPI - HPI Summary HPI Summary: fall this morning on the ice. right wrist pain and tenderness. no prior injury to that wrist. - History Of Current Complaint Chief Complaint: UCUpperExtremity Stated Complaint: RIGHT HAND INJURY Time Seen by Provider: 10/03/16 12:29 Hx Last Menstrual Period: 5/days ?: No Onset/Duration: Sudden Onset Severity Initially: Moderate Severity Currently: Moderate Character Of Pain: Sharp, Aching Aggravating Factor(s): Movement, Lifting, Flexion, Extension, Internal/External Rotation, Abduction, Adduction, Twisting, Pulling Alleviating: Rest Associated Signs And Symptoms: Positive: Negative - Allergies/Home Medications Allergies/Adverse Reactions: Allergies Allergy/AdvReac Type Severity Reaction Status Date / Time No Known Allergies Allergy Verified 10/03/16 12:17 Home Medications: Home Medications Ibuprofen TAB* [Motrin TAB* 600 MG] 600 mg PO Q6H PRN 10/03/16 [History Confirmed 10/03/16] Omeprazole CAP* [Prilosec CAP* 20 MG] 20 mg PO BID 10/03/16 [History Confirmed 10/03/16] Ondansetron ODT TAB* [Zofran Odt TAB*] 4 mg PO Q8H PRN 10/03/16 [History Confirmed 10/03/16] Sertraline* [Zoloft*] 25 mg PO BEDTIME 10/03/16 [History Confirmed 10/03/16] PMH/Surg Hx/FS Hx/Imm Hx Endocrine History Of: Denies: Diabetes Cardiovascular History Of: Denies: Hypertension GI/ History Of: Reports: Ulcer - gastric Denies: Renal Disease Psychological History Of: Reports: Anxiety - Surgical History Surgical History: None - Family History Known Family History: Positive: Cardiac Disease - father , Diabetes, Renal Disease - mother kidney failure, Other - [place] - Social History Alcohol Use: None Substance Use Type: None Substance Use Comment - Amount & Last Used: pt denies Smoking Status (MU): Never Smoked Tobacco Review of Systems All Other Systems Reviewed And Are Negative: Yes Physical Exam Triage Information Reviewed: Yes Appearance: Well-Appearing, No Pain Distress, Well-Nourished, Obese Vital Signs: Initial Vital Signs Temp 99.3 F 10/03/16 12:11 Pulse 56 10/03/16 12:11 Resp 16 10/03/16 12:11 BP 110/70 10/03/16 12:11 Pulse Ox 100 10/03/16 12:11 Vital Signs Reviewed: Yes Eye Exam: Normal Eyes: Positive: Conjunctiva Clear. Negative: Conjunctiva Inflamed ENT Exam: Normal ENT: Positive: Normal ENT inspection, Hearing grossly normal, Pharynx normal. Negative: Pharyngeal erythema Neck exam: Normal Neck: Positive: Supple, Nontender, No Lymphadenopathy. Negative: Nuchal Rigidity, Tenderness @, Enlarged Nodes @ Respiratory Exam: Normal Respiratory: Positive: Chest non-tender, Lungs clear, Normal breath sounds Cardiovascular Exam: Normal Cardiovascular: Positive: RRR, No Murmur, Pulses Normal, Brisk Capillary Refill Abdominal Exam: Normal Abdomen Description: Positive: Nontender, No Organomegaly Musculoskeletal Exam: Other - right wrist diffuse tenderness most notably at the proximal metacarpals. there is less tenderness at snuff box. no deformity or step off. Musculoskeletal: Positive: No Edema. Negative: Edema @ Neurological Exam: Normal Neurological: Positive: Alert, Muscle Tone Normal, Fatigued. Negative: Lethargic, Unresponsive, Abnormal Muscle Tone Psychological Exam: Normal Hand/Wrist Course/Dx - Course Course Of Treatment: wrist sprain. there is less scaphoid tenderness than elsewhere. splint and f/u. she was told to return for any continued pain for repeat x rays or ct if needed. - Differential Dx/Diagnosis Differential Diagnosis/HQI/PQRI: Abrasion, Burn, Bursitis, Carpal Tunnel Syndrome, Cellulitis, Contusion, Dislocation, Foreign Body, Fracture, Gout, Infection, Paronychia, Puncture Wound, Sprain, Strain, Tendonitis, Tenosynovitis Provider Diagnoses: wrist pain- traumatic. no fx. Discharge - Discharge Plan Condition: Stable Disposition: HOME Patient Education Materials: Wrist Sprain (ED) Referrals: Magaly Acevedo NP [Primary Care Provider] - 7 Days
--- NOTE | 2016-10-03 12:54 | RAD ---
Indication: Right wrist pain after injury 3 views of the wrist demonstrates no fracture. No other bone or joint abnormality is identified. IMPRESSION: NO FRACTURE OF THE WRIST IS NOTED.
== END 2016-10-03 13:37 | disposition home or self-care (01) ==
LOC: UCCORT 10:40
DX: M25.531 Pain in right wrist (principal)
CPT/HCPCS: 99212; G0463

== ENCOUNTER 2016-10-19 21:36 | Emergency (ER) | payer MEDICARE, MEDICAID ==
[2016-10-19 21:43] VITALS: BP 111/67
[2016-10-19] MEDS ORDERED: Ibuprofen TAB* 600 MG PO ONE (22:20)
--- NOTE | 2016-10-19 22:22 | ED ---
Upper Extremity Pain - HPI Summary HPI Summary: 45F presents with right wrist pain for two days. She states the pain occurred after a fall two days ago. She fell onto her right wrist. She states that her entire hand hurts and that her forearm hurt but her pain is greatest in her wrist. She has full ROM of her wrist and elbow. She states that sometimes her hand goes numb. She denies any neck pain. She denies any difficulties with speech, numbness anywhere else or any other symptoms. - History of Current Complaint Chief Complaint: EDExtremityUpper Stated Complaint: RT ARM PAIN Time Seen by Provider: 10/19/16 22:09 Hx Last Menstrual Period: 5/days - Allergies/Home Medications Allergies/Adverse Reactions: Allergies Allergy/AdvReac Type Severity Reaction Status Date / Time No Known Allergies Allergy Verified 10/03/16 12:17 PMH/Surg Hx/FS Hx/Imm Hx Endocrine/Hematology History: Denies: Hx Diabetes Cardiovascular History: Denies: Hx Hypertension GI History: Reports: Hx Gastroesophageal Reflux Disease, Hx Ulcer - gastric History: Denies: Hx Dialysis, Hx Renal Disease Psychiatric History: Reports: Hx Anxiety Infectious Disease History: No Infectious Disease History: Denies: Traveled Outside the [place] in Last 30 Days - Family History Known Family History: Positive: Cardiac Disease - father , Diabetes, Renal Disease - mother kidney failure, Other - [place] - Social History Alcohol Use: None Substance Use Type: Reports: None Substance Use Comment - Amount & Last Used: pt denies Hx Tobacco Use: No Smoking Status (MU): Never Smoked Tobacco Review of Systems Negative: Fever Negative: Chest Pain Negative: Shortness Of Breath Positive: Myalgia - right wrist pain All Other Systems Reviewed And Are Negative: Yes Physical Exam Triage Information Reviewed: Yes Vital Signs On Initial Exam: Initial Vitals Temp Pulse Resp BP Pulse Ox 98.7 F 73 16 111/67 100 10/19/16 21:40 10/19/16 21:40 10/19/16 21:40 10/19/16 21:40 10/19/16 21:40 Vital Signs Reviewed: Yes Appearance: Positive: Well-Appearing Skin: Positive: Warm, Dry Head/Face: Positive: Normal Head/Face Inspection Eyes: Positive: Normal, Conjunctiva Clear Respiratory/Lung Sounds: Positive: Clear to Auscultation, Breath Sounds Present Cardiovascular: Positive: Normal, RRR Musculoskeletal: Positive: Strength/ROM Intact - of right wrist and elbow, Other - no snuff box tenderness, diffuse tender over right wrist, attempted to do phelen test but patient says placing wrist together like that causes too much pain, on tinels patient states that has pain but no numbness or tingling, good pulses, sensation gross intact, capillary refill <2secs Diagnostics - Vital Signs Vital Signs Temp Pulse Resp BP Pulse Ox 10/19/16 21:40 98.7 F 73 16 111/67 100 - Laboratory Lab Statement: Any lab studies that have been ordered have been reviewed, and results considered in the medical decision making process. - Radiology wrist Xray Interpretation: No Acute Changes Radiology Interpretation Completed By: Radiologist Course/Dx - Course Course Of Treatment: 45F presents with right wrist pain s/p fall two days ago. States sometimes she gets numbness from elbow to hands that is diffuse. Do not suspect CVA or TIA. seems likely has contusion that is caused some swelling that causing pressure on nerves. on exam diffusely tender over entire wrist. no snuff box tenderness. could have a carpel tunnel syndrome but due to injury think pain is likely due to wrist sprain, xray normal. will treat conservatively. patient understands and agrees with plan - Diagnoses Differential Diagnosis/HQI/PQRI: Positive: Fracture (Open), Strain, Sprain Provider Diagnoses: Right wrist pain Discharge - Discharge Plan Condition: Good Disposition: HOME Patient Education Materials: Wrist Sprain (ED) Referrals: Magaly Acevedo NP [Primary Care Provider] - Additional Instructions: Follow up with primary within 5 days Keep FEDERICO on area Take Tylenol or ibuprofen every 6 hours as needed for pain Apply ice, rest, elevate Return to ED if develop any new or worsening symptoms
--- NOTE | 2016-10-19 22:39 | RAD ---
INDICATION: RIGHT wrist pain and numbness from wrist to elbow for 2 days. COMPARISON: October 03, 2016 TECHNIQUE: AP, lateral, and oblique views RIGHT wrist. REPORT: Normal articular alignment and preserved joint spaces. No cortical disruption or suspicious trabecular irregularity to suggest fracture. Unremarkable soft tissue contours. IMPRESSION: Negative exam.
== END 2016-10-19 23:02 | disposition home or self-care (01) ==
LOC: ED 21:36
DX: M25.531 Pain in right wrist (principal)
CPT/HCPCS: 99282

== ENCOUNTER 2017-04-14 19:24 | Emergency (ER) | payer MEDICARE, MEDICAID ==
[2017-04-14] MEDS ORDERED: Ibuprofen TAB* 800 MG PO ONE (20:33)
--- NOTE | 2017-04-14 20:47 | ED ---
Skin Complaint - HPI Summary HPI Summary: =Pt here w/ 2 lacs to Lt forearm - accidentally fell and arm went through a window - bled - cleaned with soap and water - bleeding stopped. Denies numbness , tingling, weakness but area hurts worse when she moves her fingers. Imms are UTD. Has not taken anything for pain yet - would like ibuprofen - declines ice. No other injuries to report. - History of Current Complaint Chief Complaint: EDLacSutureRecheck Time Seen by Provider: 04/14/17 19:42 Stated Complaint: LT ARM INJURY Hx Obtained From: Patient Hx Last Menstrual Period: 5/days Pain Intensity: 0 - Allergy/Home Medications Allergies/Adverse Reactions: Allergies Allergy/AdvReac Type Severity Reaction Status Date / Time No Known Allergies Allergy Verified 04/14/17 19:26 PMH/Surg Hx/FS Hx/Imm Hx Previously Healthy: Yes Endocrine/Hematology History: Denies: Hx Anticoagulant Therapy, Hx Blood Disorders, Hx Diabetes Cardiovascular History: Denies: Hx Hypertension GI History: Reports: Hx Gastroesophageal Reflux Disease, Hx Ulcer - gastric History: Denies: Hx Dialysis, Hx Renal Disease Psychiatric History: Reports: Hx Anxiety - Immunization History Date of Tetanus Vaccine: 2014 Infectious Disease History: No Infectious Disease History: Denies: Hx of Known/Suspected MRSA, Traveled Outside the [place] in Last 30 Days - Family History Known Family History: Positive: Cardiac Disease - father , Diabetes, Renal Disease - mother kidney failure, Other - [place] - Social History Occupation: Unemployed Lives: With Family Alcohol Use: None Hx Substance Use: No Substance Use Type: Reports: None Substance Use Comment - Amount & Last Used: pt denies Hx Tobacco Use: No Smoking Status (MU): Never Smoked Tobacco Review of Systems Constitutional: Negative Positive: no symptoms reported Musculoskeletal: Other - see HPI Skin: Other - see HPI Neurological: Negative Psychological: Normal All Other Systems Reviewed And Are Negative: Yes Physical Exam Triage Information Reviewed: Yes Vital Signs On Initial Exam: Initial Vitals Temp Pulse Resp BP Pulse Ox 98.2 F 68 16 121/74 98 04/14/17 19:27 04/14/17 19:27 04/14/17 19:27 04/14/17 19:27 04/14/17 19:27 Vital Signs Reviewed: Yes Appearance: Positive: Well-Appearing, Well-Nourished - unkempt, visible dirt on skin and clothes, pleasant, NAD Skin: Positive: Warm - 2 linear lacerations over volar aspect of Lt forearm - both about 2cm in length - subcutaneous tissue observed - no bleeding ENT: Positive: Hearing grossly normal Respiratory/Lung Sounds: Positive: Breath Sounds Present Cardiovascular: Positive: Pulses are Symmetrical in both Upper and Lower Extremities Musculoskeletal: Positive: Normal, Strength/ROM Intact - pain in area of lacs w / phalange movements Neurological: Positive: Normal, Sensory/Motor Intact, Alert, Oriented to Person Place, Time Psychiatric: Positive: Normal - Ritesh Coma Scale Coma Scale Total: 15 Procedures - Laceration/Wound Repair 1 Location: upper extremity - Lt forearm - volar aspect - distal Description: Linear Anesthesia: Local, 1.0%, Lido Length, Depth and Shape: 2cm x 3mm Betadine Prep?: Yes Irrigated w/ Saline (ccs): 50 Laceration/Wound Explored: clean Closure: Single Layer Suture Type: Nylon - 5-0 Number of Sutures: 4 Layer Closure?: No Sterile Dressing Applied?: Yes - triple anbx ointment + gauze 2 Location: upper extremity - Lt forearm - volar aspect - proximal Description: Linear Anesthesia: Local, 1.0%, Lido Length, Depth and Shape: 2cm x 3mm Betadine Prep?: Yes Irrigated w/ Saline (ccs): 50 Laceration/Wound Explored: clean Closure: Single Layer Suture Type: Nylon - 5-0 Number of Sutures: 4 Layer Closure?: No Sterile Dressing Applied?: Yes - triple anbx ointment + gauze Diagnostics - Vital Signs Vital Signs Temp Pulse Resp BP Pulse Ox 04/14/17 19:27 98.2 F 68 16 121/74 98 - Laboratory Lab Statement: Any lab studies that have been ordered have been reviewed, and results considered in the medical decision making process. Course/Dx - Diagnoses Provider Diagnoses: Laceration of forearm, left Discharge - Discharge Plan Condition: Stable Disposition: HOME Patient Education Materials: Laceration (ED), Care For Your Stitches (ED) Referrals: Magaly Acevedo NP [Primary Care Provider] - Additional Instructions: Rest, ice, elevate arm to reduce pain and swelling You may take ibuprofen with food for pain/swelling Keep dressing clean, dry and in place for 2 days - after that time, you may remove dressing - gently wash daily with soap and water - rinse well and pat dry - do not rub to avoid ripping stitches loose - apply antibiotic ointment and clean gauze dressing. Follow-up with your PCP to recheck wound and remove stitches in 10-14 days. Call tomorrow morning to schedule your appointment. *If you develop redness, swelling, streaking, purulent drainage, fever, chills - call PCP for immediate appointment or go to an urgent care or emergency department
--- NOTE | 2017-04-14 21:15 | RAD ---
INDICATION: Left forearm injury COMPARISON: None TECHNIQUE: AP and lateral views were obtained. FINDINGS: There are no acute bony findings. There is soft tissue swelling with simultaneous edema in the volar soft tissues of the forearm. There is no foreign body IMPRESSION: SOFT TISSUE INJURY. NO FRACTURE OR FOREIGN BODY
[2017-04-14 22:16] VITALS: BP 115/73
== END 2017-04-14 22:59 | disposition home or self-care (01) ==
LOC: ED 19:24
DX: S51.812A Laceration without foreign body of left forearm, initial encounter (principal); W25.XXXA Contact with sharp glass, initial encounter; Y92.9 Unspecified place or not applicable; K21.9 Gastro-esophageal reflux disease without esophagitis
CPT/HCPCS: 12001; 99282; A9270-GY

== ENCOUNTER 2017-05-04 14:49 | Emergency (ER) | payer MEDICARE, MEDICAID ==
[2017-05-04 16:50] LABS: Hematocrit 40 % (35-47); Hemoglobin 13.4 g/dl (12.0-16.0); Mean Corpuscular HGB Conc 33 g/dl (31-36); Mean Corpuscular Hemoglobin 31 pg (27-31); Mean Corpuscular Volume 92 fL (80-97); Mean Platelet Volume 8 um3 (7.4-10.4); Red Blood Count 4.38 10^6/ul (4.0-5.4); Red Cell Distribution Width 14 % (10.5-15); White Blood Count 11.3 10^3/ul (3.5-10.8)
[2017-05-04 17:07] LABS: Albumin 3.8 g/dL (3.2-5.2); BUN/Creatinine Ratio 18.7 (8-20); Calcium 8.8 mg/dL (8.6-10.3); EGFR African American 107.5 (>60); EGFR Non-African American 83.6 (>60); Globulin 3.2 g/dL (2-4); Total Bilirubin 0.6 mg/dL (0.2-1.0)
[2017-05-04] MEDS ORDERED: Sulfamethox/Trimethoprim DS 800/160* TAB PO ONE (17:21)
[2017-05-04] MEDS ORDERED: Cephalexin CAP* 500 MG PO ONE (17:21)
--- NOTE | 2017-05-04 17:27 | ED ---
Skin Complaint - HPI Summary HPI Summary: 46 female presents to ED with complaints of left arm redness, swelling, warmth and infection after having stitches. Patient states symptoms began 2 days before having stitches removed and has been worsening since. Seen by PCP who sent her here. Was placed on antibiotics at this time however patient was unaware and did not pick them up or take them. Patient denies any fever or discharge. No other complaints at this time. Denies DM, HTN or other immunocomprimsed disease. PMHx significant of GERD and ulcers. No current draining, denies red streaks. Does have increased redness and warmth over the past couple of days. - History of Current Complaint Chief Complaint: EDExtremityUpper Time Seen by Provider: 05/04/17 15:11 Stated Complaint: LT ARM POSS INFECTION Hx Obtained From: Patient Hx Last Menstrual Period: 5/days Onset/Duration: Started Days Ago - 3-4, Still Present, Worse Since Skin Exposure Onset/Duration: Days Ago Timing: Constant Onset Severity: Moderate Current Severity: Moderate Pain Intensity: 6 Pain Scale Used: 0-10 Numeric Skin Location: Arm - left forearm Character: Swelling, Redness, Painful Aggravating Symptom(s): Touch Alleviating Symptom(s): Nothing Associated Signs & Symptoms: Rash, Drainage - Allergy/Home Medications Allergies/Adverse Reactions: Allergies Allergy/AdvReac Type Severity Reaction Status Date / Time No Known Allergies Allergy Verified 04/14/17 19:26 PMH/Surg Hx/FS Hx/Imm Hx Endocrine/Hematology History: Denies: Hx Anticoagulant Therapy, Hx Blood Disorders, Hx Diabetes Cardiovascular History: Denies: Hx Hypertension GI History: Reports: Hx Gastroesophageal Reflux Disease, Hx Ulcer - gastric History: Denies: Hx Dialysis, Hx Renal Disease Psychiatric History: Reports: Hx Anxiety - Surgical History Surgery Procedure, Year, and Place: n/a - Immunization History Date of Tetanus Vaccine: 2014 Immunizations Up to Date: Yes Infectious Disease History: No Infectious Disease History: Denies: Hx of Known/Suspected MRSA, Traveled Outside the [place] in Last 30 Days - Family History Known Family History: Positive: Cardiac Disease - father , Diabetes, Renal Disease - mother kidney failure, Other - [place] - Social History Alcohol Use: None Hx Substance Use: No Substance Use Type: Reports: None Substance Use Comment - Amount & Last Used: pt denies Hx Tobacco Use: No Smoking Status (MU): Never Smoked Tobacco Review of Systems Constitutional: Negative Cardiovascular: Negative Respiratory: Negative Positive: Rash Neurological: Negative All Other Systems Reviewed And Are Negative: Yes Physical Exam Triage Information Reviewed: Yes Vital Signs On Initial Exam: Initial Vitals Temp Pulse Resp BP Pulse Ox 98.3 F 67 16 108/71 97 05/04/17 15:06 05/04/17 15:06 05/04/17 15:06 05/04/17 15:06 05/04/17 15:06 Vital Signs Reviewed: Yes Appearance: Positive: Well-Appearing, No Pain Distress, Well-Nourished Skin: Positive: Warm, Skin Color Reflects Adequate Perfusion, Dry, Erythema @ - left anterior forearm surrounding previously lacerated wounds that have healed, surrounding erythema extending to elbow, no red streaks, current drainage. warm and tender to touch. Negative: Cold, Numb, Cyanosis @ Head/Face: Positive: Normal Head/Face Inspection Eyes: Positive: Conjunctiva Clear ENT: Positive: Hearing grossly normal Neck: Positive: Supple, Nontender, No Lymphadenopathy Respiratory/Lung Sounds: Positive: Clear to Auscultation, Breath Sounds Present. Negative: Rales, Rhonchi, Wheezes Cardiovascular: Positive: Normal, RRR, Pulses are Symmetrical in both Upper and Lower Extremities. Negative: Murmur, Rub Musculoskeletal: Positive: Normal, Strength/ROM Intact Neurological: Positive: Normal, Sensory/Motor Intact, Alert, Oriented to Person Place, Time, Reflexes Intact, NV Bundle Intact Distally, Normal Gait - [place] Coma Scale Coma Scale Total: 15 Diagnostics - Vital Signs Vital Signs Temp Pulse Resp BP Pulse Ox 05/04/17 15:06 98.3 F 67 16 108/71 97 - Laboratory Lab Results: Lab Results 05/04/17 05/04/17 05/04/17 Range/Units 16:40 16:40 16:40 WBC 11.3 H (3.5-10.8) 10^3/ul RBC 4.38 (4.0-5.4) 10^6/ul Hgb 13.4 (12.0-16.0) g/dl Hct 40 (35-47) % MCV 92 (80-97) fL MCH 31 (27-31) pg MCHC 33 (31-36) g/dl RDW 14 (10.5-15) % Plt Count 335 (150-450) 10^3/ul MPV 8 (7.4-10.4) um3 Neut % (Auto) 70.0 (38-83) % Lymph % (Auto) 17.6 L (25-47) % [place] % (Auto) 9.2 H (1-9) % Eos % (Auto) 2.2 (0-6) % Baso % (Auto) 1.0 (0-2) % Absolute Neuts (auto) 7.9 H (1.5-7.7) 10^3/ul Absolute Lymphs (auto) 2.0 (1.0-4.8) 10^3/ul Absolute Monos (auto) 1.0 H (0-0.8) 10^3/ul Absolute Eos (auto) 0.2 (0-0.6) 10^3/ul Absolute Basos (auto) 0.1 (0-0.2) 10^3/ul Absolute Nucleated RBC 0.01 10^3/ul Nucleated RBC % 0.1 Sodium 137 (133-145) mmol/L Potassium 4.0 (3.5-5.0) mmol/L Chloride 102 (101-111) mmol/L Carbon Dioxide 28 (22-32) mmol/L Anion Gap 7 (2-11) mmol/L BUN 14 (6-24) mg/dL Creatinine 0.75 (0.51-0.95) mg/dL Est GFR ( Amer) 107.5 (>60) Est GFR (Non-Af Amer) 83.6 (>60) BUN/Creatinine Ratio 18.7 (8-20) Glucose 80 (70-100) mg/dL Lactic Acid 0.8 (0.5-2.0) mmol/L Calcium 8.8 (8.6-10.3) mg/dL Total Bilirubin 0.60 (0.2-1.0) mg/dL AST 19 (13-39) U/L ALT 12 (7-52) U/L Alkaline Phosphatase 78 (34-104) U/L Total Protein 7.0 (6.4-8.9) g/dL Albumin 3.8 (3.2-5.2) g/dL Globulin 3.2 (2-4) g/dL Albumin/Globulin Ratio 1.2 (1-3) Result Diagrams: 05/04/17 16:40 05/04/17 16:40 Lab Statement: Any lab studies that have been ordered have been reviewed, and results considered in the medical decision making process. Course/Dx - Course Course Of Treatment: labs obtained and negative for sepsis. appears patient is suffering from a cellulitis due to getting lacerations/stitches infected. Patient given first dose of oral antibiotics while in ED. continue at home. keep clean and dry. apply triple anitbiotic ointment. aware of worsening signs and symptoms. no drainage to culture at this time, no concern for abscess. follow up with pcp and recheck within 3-5 days. increase fluid intake. - Differential Diagnoses - Skin Complaint Differential Diagnoses: Abscess, Cellulitis, Local Allergic Reaction - Diagnoses Provider Diagnoses: Cellulitis of left arm Discharge - Discharge Plan Condition: Stable Disposition: HOME Prescriptions: Cephalexin CAP* [Keflex CAP*] 500 mg PO TID #42 cap Sulfamethox/Trimethoprim DS* [Bactrim DS 800/160 TAB*] 1 tab PO BID #27 tab Patient Education Materials: Cellulitis (ED) Referrals: Magaly Acevedo NP [Primary Care Provider] - Additional Instructions: Take prescribed medication as directed until entire dose is finished. Do not miss a dose. Drink plenty of fluids. Keep wounds clean and dry. Continue dressing and applying triple antibiotic ointment. IF symptoms worsen or do not improve please seek medical attention promptly. Follow up and re-check with PCP in 5 days, sooner if needed.
[2017-05-04 17:38] VITALS: BP 98/65
== END 2017-05-04 17:40 | disposition home or self-care (01) ==
LOC: ED 14:49
DX: L03.114 Cellulitis of left upper limb (principal); K21.9 Gastro-esophageal reflux disease without esophagitis; F41.9 Anxiety disorder, unspecified
CPT/HCPCS: 36415; 80053; 83605; 85025; 99282; A9270-GY

== ENCOUNTER 2017-07-09 19:42 | Emergency (ER) | payer MEDICARE, MEDICAID ==
[2017-07-09 19:55] VITALS: BP 118/75
--- NOTE | 2017-07-09 22:27 | ED ---
Laceration/Wound HPI - HPI Summary HPI Summary: Patient presents to the ED with CC of small 1cm laceration to the left middle finger from glass in the sink. Superficial. Denies other symptoms or complaints. Patient arrives extremely disheveled and appears to be homeless. Minimal blood loss. Denies numbness, tingling, color or temperature changes. She arrives with the laceration wrapped in electrical tape. - History of Current Complaint Stated Complaint: LT FINGER LACS Time Seen by Provider: 07/09/17 19:53 Hx Obtained From: Patient Hx Last Menstrual Period: 5/days Mechanism of Injury: Sharp/Blunt Trauma Onset/Duration: Sudden Onset Aggravating: Movement Alleviating: Compression Timing: Constant Onset Severity: Mild Pain Intensity: 5 Pain Scale Used: 0-10 Numeric Associated Signs & Symptoms: Negative - Allergy/Home Medications Allergies/Adverse Reactions: Allergies Allergy/AdvReac Type Severity Reaction Status Date / Time No Known Allergies Allergy Verified 07/09/17 19:55 PMH/Surg Hx/FS Hx/Imm Hx Previously Healthy: Yes Endocrine/Hematology History: Denies: Hx Anticoagulant Therapy, Hx Blood Disorders, Hx Diabetes Cardiovascular History: Denies: Hx Hypertension GI History: Reports: Hx Gastroesophageal Reflux Disease, Hx Ulcer - gastric History: Denies: Hx Dialysis, Hx Renal Disease Psychiatric History: Reports: Hx Anxiety - Surgical History Surgery Procedure, Year, and Place: n/a - Immunization History Date of Tetanus Vaccine: 2014 Date of Influenza Vaccine: Not up to date Hx Pertussis Vaccination: No Immunizations Up to Date: Yes Infectious Disease History: No Infectious Disease History: Denies: Hx of Known/Suspected MRSA, Traveled Outside the [place] in Last 30 Days - Family History Known Family History: Positive: Cardiac Disease - father , Diabetes, Renal Disease - mother kidney failure, Other - [place] - Social History Occupation: Unemployed Lives: Alone - homeless Alcohol Use: None Hx Substance Use: No Substance Use Type: Reports: None Substance Use Comment - Amount & Last Used: pt denies Hx Tobacco Use: No Smoking Status (MU): Never Smoked Tobacco Review of Systems Constitutional: Negative Negative: Fever, Chills, Fatigue Eyes: Negative Cardiovascular: Negative Respiratory: Negative Genitourinary: Negative Positive: no symptoms reported, see HPI Positive: Other - 2 small lacerations to the 3rd finger of the left hand Neurological: Negative All Other Systems Reviewed And Are Negative: Yes Physical Exam Triage Information Reviewed: Yes Vital Signs On Initial Exam: Initial Vitals Temp Pulse Resp BP Pulse Ox 98.2 F 63 14 118/75 98 07/09/17 19:53 07/09/17 19:53 07/09/17 19:53 07/09/17 19:53 07/09/17 19:53 Appearance: Positive: Cachectic - disheveled Skin: Positive: Skin Color Reflects Adequate Perfusion Head/Face: Positive: Normal Head/Face Inspection Eyes: Positive: EOMI, Conjunctiva Clear Neck: Positive: Supple, No Lymphadenopathy Respiratory/Lung Sounds: Positive: Clear to Auscultation, Breath Sounds Present Cardiovascular: Positive: RRR, Pulses are Symmetrical in both Upper and Lower Extremities Musculoskeletal: Positive: Normal, Strength/ROM Intact Neurological: Positive: Speech Normal Psychiatric: Positive: Normal Diagnostics - Vital Signs Vital Signs Temp Pulse Resp BP Pulse Ox 07/09/17 19:53 98.2 F 63 14 118/75 98 - Laboratory Lab Statement: Any lab studies that have been ordered have been reviewed, and results considered in the medical decision making process. Laceration Repair Course/Dx - Course Course Of Treatment: 30CC NS flushed 2 small lacerations to the 3rd finger. The area was steri stripped with 3 strips and bandaid applied. Gauze wrapped. - Clinical Impression Provider Diagnoses: Laceration Discharge - Discharge Plan Condition: Stable Disposition: HOME Referrals: Magaly Acevedo NP [Primary Care Provider] - Additional Instructions: Wrap again with using antibiotic ointment again tomorrow Keep the area clean and dry
== END 2017-07-09 20:52 | disposition home or self-care (01) ==
LOC: ED 19:42
DX: S61.213A Laceration without foreign body of left middle finger without damage to nail, initial encounter (principal); W25.XXXA Contact with sharp glass, initial encounter; K21.9 Gastro-esophageal reflux disease without esophagitis; F41.9 Anxiety disorder, unspecified; Z59.0 Homelessness; Y92.9 Unspecified place or not applicable
CPT/HCPCS: 99282

== ENCOUNTER → 2017-07-22 19:02 | Emergency (ER) | payer MEDICARE, MEDICAID ==
[~2017-07-22 19:02] MED LIST: Acetaminophen TAB* 325 MG PO ONE; Al Hydrox/Mg Hydrox/Simet LIQ* 30 ML UDC PO ONE; Lidocaine 2% VISCOUS* 15 ML UDC PO ONE
[2017-07-22 22:36] LABS: Hematocrit 45 % (35-47); Mean Corpuscular HGB Conc 34 g/dl (31-36); Mean Corpuscular Hemoglobin 31 pg (27-31); Mean Corpuscular Volume 94 fL (80-97); Mean Platelet Volume 8 um3 (7.4-10.4); Red Blood Count 4.78 10^6/ul (4.0-5.4); Red Cell Distribution Width 14 % (10.5-15); White Blood Count 7.9 10^3/ul (3.5-10.8)
[2017-07-22 22:50] LABS: Albumin 4.1 g/dL (3.2-5.2); BUN/Creatinine Ratio 29.5 (8-20); Calcium 9.3 mg/dL (8.6-10.3); EGFR African American 102.7 (>60); EGFR Non-African American 79.9 (>60); Globulin 2.7 g/dL (2-4); Total Bilirubin 0.5 mg/dL (0.2-1.0); Total Protein 6.8 g/dL (6.4-8.9)
--- NOTE | 2017-07-22 23:31 | ED ---
Headache - HPI Summary HPI Summary: 46F presents for multiple complaints. For past couple days has been having intermittent headahce and generalized abdominal pain. no fever, neck stiffness , photophobia. has stable brain mass. has history of headaches and this feels like her typically headache. It is same location is 3/10 now. She denies any change in vision. She states normal takes ibuprofen and Tylenol for this headache but she ran out of such. She denies any flank pain, hematuira , urgency, frequency. She denies any nausea, vomiting, or diarrhea. She denies any abdominal pain now. - History Of Current Complaint Chief Complaint: EDHeadache Stated Complaint: HEADACHE/STOMACH PAIN Time Seen by Provider: 07/22/17 22:01 Hx Last Menstrual Period: 5/days - Allergies/Home Medications Allergies/Adverse Reactions: Allergies Allergy/AdvReac Type Severity Reaction Status Date / Time No Known Allergies Allergy Verified 07/09/17 19:55 PMH/Surg Hx/FS Hx/Imm Hx Endocrine/Hematology History: Denies: Hx Anticoagulant Therapy, Hx Blood Disorders, Hx Diabetes Cardiovascular History: Denies: Hx Hypertension GI History: Reports: Hx Gastroesophageal Reflux Disease, Hx Ulcer - gastric History: Denies: Hx Dialysis, Hx Renal Disease Psychiatric History: Reports: Hx Anxiety - Surgical History Surgery Procedure, Year, and Place: n/a - Immunization History Date of Tetanus Vaccine: 2014 Date of Influenza Vaccine: Not up to date Infectious Disease History: No Infectious Disease History: Denies: Hx of Known/Suspected MRSA, Traveled Outside the [place] in Last 30 Days - Family History Known Family History: Positive: Cardiac Disease - father , Diabetes, Renal Disease - mother kidney failure, Other - [place] - Social History Alcohol Use: None Hx Substance Use: No Substance Use Type: Reports: None Substance Use Comment - Amount & Last Used: pt denies Hx Tobacco Use: No Smoking Status (MU): Never Smoked Tobacco Review of Systems Negative: Fever Negative: Chest Pain Negative: Shortness Of Breath Positive: Abdominal Pain. Negative: Vomiting, Diarrhea, Nausea Positive: Headache All Other Systems Reviewed And Are Negative: Yes Physical Exam Triage Information Reviewed: Yes Vital Signs On Initial Exam: Initial Vitals Temp Pulse Resp BP Pulse Ox 98.9 F 57 16 119/56 98 07/22/17 19:18 07/22/17 19:18 07/22/17 19:18 07/22/17 19:18 07/22/17 19:18 Vital Signs Reviewed: Yes Appearance: Positive: Well-Appearing Skin: Positive: Warm, Dry Head/Face: Positive: Normal Head/Face Inspection Eyes: Positive: Normal, EOMI, UMA, Conjunctiva Clear ENT: Positive: Normal ENT inspection, Pharynx normal, TMs normal Neck: Positive: Supple, Nontender, No Lymphadenopathy Respiratory/Lung Sounds: Positive: Clear to Auscultation, Breath Sounds Present Cardiovascular: Positive: Normal, RRR Abdomen Description: Positive: Nontender, Soft Bowel Sounds: Positive: Present Musculoskeletal: Positive: Normal Neurological: Positive: Normal Psychiatric: Positive: Normal - Ritesh Coma Scale Coma Scale Total: 15 Diagnostics - Vital Signs Vital Signs Temp Pulse Resp BP Pulse Ox 07/22/17 19:18 98.9 F 57 16 119/56 98 - Laboratory Lab Results: Lab Results 07/22/17 07/22/17 Range/Units 22:20 22:20 WBC 7.9 (3.5-10.8) 10^3/ul RBC 4.78 (4.0-5.4) 10^6/ul Hgb 15.0 (12.0-16.0) g/dl Hct 45 (35-47) % MCV 94 (80-97) fL MCH 31 (27-31) pg MCHC 34 (31-36) g/dl RDW 14 (10.5-15) % Plt Count 283 (150-450) 10^3/ul MPV 8 (7.4-10.4) um3 Neut % (Auto) 59.1 (38-83) % Lymph % (Auto) 27.7 (25-47) % [place] % (Auto) 8.8 (1-9) % Eos % (Auto) 3.2 (0-6) % Baso % (Auto) 1.2 (0-2) % Absolute Neuts (auto) 4.7 (1.5-7.7) 10^3/ul Absolute Lymphs (auto) 2.2 (1.0-4.8) 10^3/ul Absolute Monos (auto) 0.7 (0-0.8) 10^3/ul Absolute Eos (auto) 0.3 (0-0.6) 10^3/ul Absolute Basos (auto) 0.1 (0-0.2) 10^3/ul Absolute Nucleated RBC 0.01 10^3/ul Nucleated RBC % 0.1 Sodium 136 (133-145) mmol/L Potassium 4.0 (3.5-5.0) mmol/L Chloride 104 (101-111) mmol/L Carbon Dioxide 27 (22-32) mmol/L Anion Gap 5 (2-11) mmol/L BUN 23 (6-24) mg/dL Creatinine 0.78 (0.51-0.95) mg/dL Est GFR ( Amer) 102.7 (>60) Est GFR (Non-Af Amer) 79.9 (>60) BUN/Creatinine Ratio 29.5 H (8-20) Glucose 85 (70-100) mg/dL Calcium 9.3 (8.6-10.3) mg/dL Total Bilirubin 0.50 (0.2-1.0) mg/dL AST 18 (13-39) U/L ALT 12 (7-52) U/L Alkaline Phosphatase 62 (34-104) U/L C-React Prot High Sens 0.69 mg/L Total Protein 6.8 (6.4-8.9) g/dL Albumin 4.1 (3.2-5.2) g/dL Globulin 2.7 (2-4) g/dL Albumin/Globulin Ratio 1.5 (1-3) Lipase 40 (11.0-82.0) U/L Result Diagrams: 07/22/17 22:20 07/22/17 22:20 Lab Statement: Any lab studies that have been ordered have been reviewed, and results considered in the medical decision making process. Headache Course/Dx - Course Course Of Treatment: 46F presents for multiple complaints. For past couple days has been having intermittent headahce and generalized abdominal pain. no fever, neck stiffness, photophobia. has stable brain mass. has history of headaches and this feels like her typically headache. It is same location is 3/10 now. She denies any change in vision. She states normal takes ibuprofen and Tylenol for this headache but she ran out of such. She denies any flank pain, hematuira, urgency, frequency. She denies any nausea, vomiting, or diarrhea. She denies any abdominal pain now. She has history of GERD and states that could be causing the pain. normal neuro exam. abdomen soft nontender. will give tyenlol and gi cocktail. labs normal. patient feeling better. patient understand and agrees with plan. - Diagnoses Differential Diagnosis/HQI/PQRI: Migraine, Tension Headache, Viral Syndrome Provider Diagnoses: Headache, Abdominal pain Discharge - Discharge Plan Condition: Good Disposition: HOME Prescriptions: Acetaminophen TAB* [Tylenol TAB*] 650 mg PO Q6H PRN #20 tab PRN Reason: Pain Ibuprofen TAB* [Motrin TAB* 600 MG] 600 mg PO Q6H PRN #20 tab PRN Reason: Pain Patient Education Materials: General Headache (ED) Referrals: Magaly Acevedo NP [Primary Care Provider] - Additional Instructions: Take Tylenol or ibuprofen every 6 hours as needed for pain Follow up with primary care physician within 5 days Return to ED if develop any new or worsening symptoms
[2017-07-23 00:02] VITALS: BP 124/65
== END | disposition home or self-care (01) ==
LOC: ED 19:02
DX: R51 Headache (principal); K21.9 Gastro-esophageal reflux disease without esophagitis; R10.84 Generalized abdominal pain; F41.9 Anxiety disorder, unspecified
CPT/HCPCS: 36415; 80053; 83690; 85025; 86141; 99284; A9270-GY

== ENCOUNTER 2017-09-19 21:19 | Emergency (ER) | payer MEDICARE, MEDICAID ==
--- NOTE | 2017-09-19 21:56 | RAD ---
HISTORY: Rule out foreign body, penetrating trauma COMPARISONS: None VIEWS: 3, Frontal, lateral, and oblique views of the right foot FINDINGS: BONE DENSITY: Normal. BONES: There is no displaced fracture. There are calcaneal enthesophytes. JOINTS: There is no arthropathy. ALIGNMENT: There is no dislocation. SOFT TISSUES: Unremarkable. OTHER FINDINGS: There is no radiopaque foreign body. IMPRESSION: NO ACUTE OSSEOUS INJURY. NO RADIOPAQUE FOREIGN BODY. IF SYMPTOMS PERSIST, RECOMMEND REPEAT IMAGING.
[2017-09-19] MEDS ORDERED: Clindamycin CAP* 150 MG PO ONE (22:33)
[2017-09-19] MEDS ORDERED: Ibuprofen TAB* 800 MG PO ONE (22:33)
[2017-09-19 23:11] VITALS: BP 117/69
--- NOTE | 2017-09-20 00:29 | ED ---
Markus Pisano Julia, scribed for Giana Berrios MD on 09/19/17 at 2246 . Lower Extremity - HPI Summary HPI Summary: This patient is a 46 year old F presenting to [facility] with a chief complaint of aching R foot pain of the plantar surface for the past two days. Patient reports she may have stepped on a piece of glass. The patient rates the pain 6/ 10 in severity. Symptoms aggravated by walking and applying pressure. - History of Current Complaint Chief Complaint: EDGeneral Stated Complaint: RT FOOT INJURY Time Seen by Provider: 09/19/17 21:43 Hx Obtained From: Patient Hx Last Menstrual Period: 5/days Mechanism Of Injury: Unknown - believes she stepped on a piece of glass Onset of Pain: Days Onset/Duration: Days Pain Intensity: 6 Pain Scale Used: 0-10 Numeric Timing: Constant Location: Is Discrete @ - R plantar surface of foot Character Of Pain: Aching Aggravating Factor(s): Weight Bearing - pressure to area - Allergies/Home Medications Allergies/Adverse Reactions: Allergies Allergy/AdvReac Type Severity Reaction Status Date / Time No Known Allergies Allergy Verified 07/09/17 19:55 PMH/Surg Hx/FS Hx/Imm Hx Endocrine/Hematology History: Denies: Hx Anticoagulant Therapy, Hx Blood Disorders, Hx Diabetes Cardiovascular History: Denies: Hx Hypertension GI History: Reports: Hx Gastroesophageal Reflux Disease, Hx Ulcer - gastric History: Denies: Hx Dialysis, Hx Renal Disease Psychiatric History: Reports: Hx Anxiety - Surgical History Surgery Procedure, Year, and Place: n/a - Immunization History Date of Tetanus Vaccine: 2014 Date of Influenza Vaccine: Not up to date Infectious Disease History: No Infectious Disease History: Denies: Hx of Known/Suspected MRSA, Traveled Outside the [place] in Last 30 Days - Family History Known Family History: Positive: Cardiac Disease - father , Diabetes, Renal Disease - mother kidney failure, Other - [place] - Social History Alcohol Use: None Hx Substance Use: No Substance Use Type: Reports: None Substance Use Comment - Amount & Last Used: pt denies Hx Tobacco Use: No Smoking Status (MU): Never Smoked Tobacco Review of Systems Negative: Fever Positive: Myalgia - R foot All Other Systems Reviewed And Are Negative: Yes Physical Exam - Summary Physical Exam Summary: VITAL SIGNS: Reviewed. GENERAL: Patient is a well-developed and nourished female who is lying comfortable in the stretcher. Patient is not in any acute respiratory distress. HEAD AND FACE: No signs of trauma. No ecchymosis, hematomas or skull depressions. No sinus tenderness. EYES: PERRLA, EOMI x 2, No injected conjunctiva, no nystagmus. EARS: Hearing grossly intact. Ear canals and tympanic membranes are within normal limits. MOUTH: Oropharynx within normal limits. NECK: Supple, trachea is midline, no adenopathy, no JVD, no carotid bruit, no c- spine tenderness, neck with full ROM. CHEST: Symmetric, no tenderness at palpation LUNGS: Clear to auscultation bilaterally. No wheezing or crackles. CVS: Regular rate and rhythm, S1 and S2 present, no murmurs or gallops appreciated. ABDOMEN: Soft, non-tender. No signs of distention. No rebound no guarding, and no masses palpated. Bowel sounds are normal. EXTREMITIES: FROM in all major joints, no edema, no cyanosis or clubbing. There is milld tenderness without other inflammatory sign of the sole of the R foot. NEURO: Alert and oriented x 3. No acute neurological deficits. Speech is normal and follows commands. SKIN: Dry and warm Triage Information Reviewed: Yes Vital Signs On Initial Exam: Initial Vitals Temp Pulse Resp BP Pulse Ox 98.7 F 62 18 109/76 97 09/19/17 21:22 09/19/17 21:22 09/19/17 21:22 09/19/17 21:22 09/19/17 21:22 Vital Signs Reviewed: Yes Diagnostics - Vital Signs Vital Signs Temp Pulse Resp BP Pulse Ox 09/19/17 21:22 98.7 F 62 18 109/76 97 - Laboratory Lab Statement: Any lab studies that have been ordered have been reviewed, and results considered in the medical decision making process. - Radiology R Foot XR Radiology Interpretation Completed By: Radiologist - NO ACUTE OSSEOUS INJURY. NO RADIOPAQUE FOREIGN BODY. IF SYMPTOMS PERSIST, RECOMMEND REPEAT IMAGING. ED Physician has reviewed this report. Lower Extremity Course/Dx - Course Course Of Treatment: Patient presents with noah R foot pain of the plantar surface for the past two days. Patient reports she may have stepped on a piece of glass. An XR of the right foot reveals no foriegn body or bony injury. There are no signs of inflammation. Patient is given Cleocin and Motrin. Patient is instructed to follow up with a orthopedist for worsening symptoms. - Diagnoses Provider Diagnoses: Right foot pain Discharge - Discharge Plan Condition: Stable Disposition: HOME Prescriptions: Clindamycin Cap(NF) [Clindamycin Cap 300 mg Cap(NF)] 300 mg PO Q6H #30 cap Ibuprofen TAB* [Motrin TAB* 800 MG] 800 mg PO Q6H PRN #30 tab PRN Reason: Pain Patient Education Materials: Soft Tissue Foreign Body (ED) Referrals: Magaly Acevedo NP [Primary Care Provider] - 2 Days Additional Instructions: Follow up with an orthopedist if symptoms continue The documentation as recorded by the Markus maguire Julia accurately reflects the service I personally performed and the decisions made by Yash maurer Abdul, MD.
== END 2017-09-19 23:15 | disposition home or self-care (01) ==
LOC: ED 21:19
DX: M79.671 Pain in right foot (principal); Z87.19 Personal history of other diseases of the digestive system
CPT/HCPCS: 99282; A9270-GY

== ENCOUNTER 2017-10-15 23:51 | Emergency (ER) | payer MEDICARE, MEDICAID ==
[2017-10-16] MEDS ORDERED: Ketorolac INJ* 30 MG/ML 1 ML VIAL IV PUSH ONE (00:40)
[2017-10-16] MEDS ORDERED: Famotidine IV* 10 MG/ML 2 ML (20 mg) IV SLOW PU ONE (00:41)
[2017-10-16 01:11] LABS: ABS Basophils 0 10^3/ul (0-0.2); ABS Eosinophils 0.1 10^3/ul (0-0.6); ABS Lymphocytes 1.6 10^3/ul (1.0-4.8); ABS Monocytes 0.7 10^3/ul (0-0.8); ABS Neutrophils 4.8 10^3/ul (1.5-7.7); ABS Nucleated RBC 0 10^3/ul; Eosinophil % 1.8 % (0-6); Hematocrit 40 % (35-47); Hemoglobin 13.6 g/dl (12.0-16.0); Lymphocyte % 21.6 % (25-47); Mean Corpuscular HGB Conc 34 g/dl (31-36); Mean Corpuscular Hemoglobin 32 pg (27-31); Mean Corpuscular Volume 94 fL (80-97); Mean Platelet Volume 7 um3 (7.4-10.4); Nucleated Red Blood Cells % 0.1; Platelet Count 278 10^3/ul (150-450); Red Blood Count 4.26 10^6/ul (4.0-5.4); Red Cell Distribution Width 13 % (10.5-15); White Blood Count 7.2 10^3/ul (3.5-10.8)
[2017-10-16 01:29] LABS: EGFR Non-African American 83.6 (>60)
[2017-10-16] MEDS ORDERED: Albuterol HFA INHALER* 8 gm MDI INH SCH (02:00)
[2017-10-16] MEDS ORDERED: Al Hydrox/Mg Hydrox/Simet LIQ* 30 ML UDC PO ONE (03:14)
[2017-10-16] MEDS ORDERED: Lidocaine 2% VISCOUS* 15 ML UDC PO ONE (03:16)
[2017-10-16] MEDS ORDERED: traMADol TAB* 50 MG PO ONE (05:09)
[2017-10-16 05:23] VITALS: BP 108/72
--- NOTE | 2017-10-16 06:44 | ED ---
Lexus Pisano Gabriel, scribed for Anthony Rdz MD on 10/16/17 at 0056 . HPI Chest Pain - HPI Summary HPI Summary: This patient is a 46 year old F BIBA to [facility] with a chief complaint of CP/ upper abdominal pain for several hours. Pt thought she pulled a muscle because she shoveled yesterday but it lasted through-out the day. The patient rates the pain 10/10 in severity. Patient sharp pain with no radiation. Pt does report some SOB with symptoms. Pt denies any N/V, lightheadedness, or diaphoresis. - History of Current Complaint Chief Complaint: EDChestPainROMI Time Seen by Provider: 10/16/17 00:23 Hx Obtained From: Patient Hx Last Menstrual Period: 5/days Onset/Duration: Started Hours Ago, Still Present Timing: Constant Initial Severity: Severe Current Severity: Severe Pain Intensity: 10 Pain Scale Used: 0-10 Numeric Chest Pain Location: Diffuse Associated Signs and Symptoms: Positive: Other: - difficulty breathing - Allergy/Home Medications Allergies/Adverse Reactions: Allergies Allergy/AdvReac Type Severity Reaction Status Date / Time No Known Allergies Allergy Verified 10/15/17 23:58 PMH/Surg Hx/FS Hx/Imm Hx Endocrine/Hematology History: Denies: Hx Anticoagulant Therapy, Hx Blood Disorders, Hx Diabetes Cardiovascular History: Denies: Hx Hypertension GI History: Reports: Hx Gastroesophageal Reflux Disease, Hx Ulcer - gastric History: Denies: Hx Dialysis, Hx Renal Disease Psychiatric History: Reports: Hx Anxiety, Hx Depression - Surgical History Surgery Procedure, Year, and Place: n/a - Immunization History Date of Tetanus Vaccine: unk Date of Influenza Vaccine: none Infectious Disease History: No Infectious Disease History: Denies: Hx of Known/Suspected MRSA, Traveled Outside the [place] in Last 30 Days - Family History Known Family History: Positive: Cardiac Disease - father , Diabetes, Renal Disease - mother kidney failure, Other - [place] - Social History Lives: With Family Alcohol Use: None Hx Substance Use: No Substance Use Type: Reports: None Substance Use Comment - Amount & Last Used: pt denies Hx Tobacco Use: No Smoking Status (MU): Never Smoked Tobacco Review of Systems Positive: Chest Pain Positive: Other - trouble breathing All Other Systems Reviewed And Are Negative: Yes Physical Exam - Summary Physical Exam Summary: Appearance: Well-appearing, no distress, Well-nourished Skin: Warm, color reflects adequate perfusion Head: Normal Head/Face inspection Eyes: Conjunctiva clear ENT: Normal inspection Neck: Supple, no nodes, no JVD. Respiratory: Lungs clear, Normal breath sounds, no respiratory distress Cardio: RRR, No murmur, pulses normal, brisk capillary refill Abdomen: soft, mild epigastric tenderness. no guarding, no rebound Bowel sounds: present Musculoskeletal: Strength Intact/ ROM intact. No calf tenderness. No edema. Neuro: Alert, muscle tone normal, facial symmetry, speech normal, sensory/motor intact Psychological: Normal Triage Information Reviewed: Yes Vital Signs On Initial Exam: Initial Vitals Temp Pulse Resp BP Pulse Ox 97.9 F 62 13 114/48 99 10/15/17 23:57 10/15/17 23:57 10/15/17 23:57 10/15/17 23:57 10/15/17 23:57 Vital Signs Reviewed: Yes Diagnostics - Vital Signs Vital Signs Temp Pulse Resp BP Pulse Ox 10/15/17 23:57 97.9 F 62 13 114/48 99 - Laboratory Lab Results: Lab Results 10/16/17 10/16/17 Range/Units 01:00 01:00 WBC 7.2 (3.5-10.8) 10^3/ul RBC 4.26 (4.0-5.4) 10^6/ul Hgb 13.6 (12.0-16.0) g/dl Hct 40 (35-47) % MCV 94 (80-97) fL MCH 32 H (27-31) pg MCHC 34 (31-36) g/dl RDW 13 (10.5-15) % Plt Count 278 (150-450) 10^3/ul MPV 7 L (7.4-10.4) um3 Neut % (Auto) 66.0 (38-83) % Lymph % (Auto) 21.6 L (25-47) % [place] % (Auto) 9.9 H (0-7) % Eos % (Auto) 1.8 (0-6) % Baso % (Auto) 0.7 (0-2) % Absolute Neuts (auto) 4.8 (1.5-7.7) 10^3/ul Absolute Lymphs (auto) 1.6 (1.0-4.8) 10^3/ul Absolute Monos (auto) 0.7 (0-0.8) 10^3/ul Absolute Eos (auto) 0.1 (0-0.6) 10^3/ul Absolute Basos (auto) 0 (0-0.2) 10^3/ul Absolute Nucleated RBC 0 10^3/ul Nucleated RBC % 0.1 Sodium 137 (133-145) mmol/L Potassium 3.6 (3.5-5.0) mmol/L Chloride 104 (101-111) mmol/L Carbon Dioxide 26 (22-32) mmol/L Anion Gap 7 (2-11) mmol/L BUN 12 (6-24) mg/dL Creatinine 0.75 (0.51-0.95) mg/dL Est GFR ( Amer) 107.5 (>60) Est GFR (Non-Af Amer) 83.6 (>60) BUN/Creatinine Ratio 16.0 (8-20) Glucose 91 (70-100) mg/dL Calcium 8.9 (8.6-10.3) mg/dL Total Bilirubin 1.20 H (0.2-1.0) mg/dL AST 17 (13-39) U/L ALT 11 (7-52) U/L Alkaline Phosphatase 50 (34-104) U/L Troponin I 0.00 (<0.04) ng/mL Total Protein 6.2 L (6.4-8.9) g/dL Albumin 3.7 (3.2-5.2) g/dL Globulin 2.5 (2-4) g/dL Albumin/Globulin Ratio 1.5 (1-3) Lipase 22 (11.0-82.0) U/L Result Diagrams: 10/16/17 01:00 10/16/17 01:00 Lab Statement: Any lab studies that have been ordered have been reviewed, and results considered in the medical decision making process. - EKG 00:02 Cardiac Rate: Bradycardia EKG Rhythm: Sinus Bradycardia - at 56 BPM EKG Interpretation: normal axis, no ST/T wave changes, Intraventricular conduction delay Re-Evaluation - Re-Evaluation First Eval Re-Evaluation Time: 01:30 Change: Improved - Pt states sehe continues to have some sharp epigastric pain. pt states mild improvement with IV analgesia. will give second dose analgesia and reevaluate. Second Eval Re-Evaluation Time: 03:30 Change: Improved - Pt states pain improved. pt repeat abdominal exam with mild epigastric TTP. Pt symptoms most consistent with Gastric/PUD. will give oral analgesia with close f/u. Chest Pain Course/Dx - Chest Pain Differential Diagnosis/HQI/PQRI: Angina, Chest Wall, GI Disease, Lower Respiratory Infection, Pulmonary Embolism, Other: - Gastritis, PUD - Diagnoses Provider Diagnoses: Gastritis Discharge - Discharge Plan Condition: Improved Disposition: HOME Prescriptions: Dicyclomine CAP* [Bentyl CAP*] 10 mg PO TID PRN 3 Days #10 cap PRN Reason: Pain Tramadol HCl/Acetaminophen [Ultracet Tablet] 1 each PO TID PRN 3 Days #10 tablet MDD 3 tablets PRN Reason: Pain Patient Education Materials: Gastritis (ED) Referrals: Magaly Acevedo, PROCEDURES ANALYST [Primary Care Provider] - 2 Days The documentation as recorded by the Lexus maguire Gabriel accurately reflects the service I personally performed and the decisions made by , Anthony Rdz MD.
== END 2017-10-16 05:25 | disposition home or self-care (01) ==
LOC: ED 23:51
DX: K29.70 Gastritis, unspecified, without bleeding (principal); R10.10 Upper abdominal pain, unspecified
CPT/HCPCS: 36415; 80053; 83690; 84484; 85025; 93005; 96374; 96375; 99284; A9270-GY; J1885

== ENCOUNTER → 2018-04-14 18:05 | Emergency (ER) | payer MEDICARE, MEDICAID ==
[2018-04-14 19:22] LABS: ABS Basophils 0 10^3/ul (0-0.2); ABS Eosinophils 0.1 10^3/ul (0-0.6); ABS Lymphocytes 1.4 10^3/ul (1.0-4.8); ABS Nucleated RBC 0 10^3/ul; Eosinophil % 0.5 % (0-6); Hematocrit 45 % (35-47); Lymphocyte % 12.4 % (25-47); Mean Corpuscular HGB Conc 33 g/dl (31-36); Mean Corpuscular Hemoglobin 31 pg (27-31); Mean Corpuscular Volume 94 fL (80-97); Mean Platelet Volume 7.6 um3 (7.4-10.4); Nucleated Red Blood Cells % 0; Platelet Count 298 10^3/ul (150-450); Red Blood Count 4.78 10^6/ul (4.00-5.40); Red Cell Distribution Width 14 % (10.5-15); White Blood Count 11.6 10^3/ul (3.5-10.8)
[2018-04-14 19:38] LABS: EGFR Non-African American 62.6 (>60)
--- NOTE | 2018-04-14 21:29 | ED ---
HPI Chest Pain - HPI Summary HPI Summary: The patient is a 47 y/o F presenting to [facility] with a chief complaint of mid- sternal/epigastric CP that radiates to the right lateral costal region and back starting about three days ago. The pain is described as a sharp, shooting pain, and was intermediate at time of onset but has gradually worsened into a constant pain. The pain is currently rated /10 in severity. She has taken Tums antacids to no relief. The pain is currently rated 8/10 in severity and is not aggravated or alleviated by anything. She additionally c/o nausea, SOB, and nonproductive cough. She denies fevers and chills. She has not had this pain before, but she has hx of GERD and FHx of cardiac disease. No hx of asthma. Nonsmoker. She also reports a small benign brain tumor that was dx at [facility] in 2017. - History of Current Complaint Chief Complaint: EDChestPainROMI Time Seen by Provider: 04/14/18 21:16 Hx Obtained From: Patient Hx Last Menstrual Period: 5/days Onset/Duration: Started Days Ago - three days, Still Present Timing: Constant, Lasting Days Initial Severity: Moderate Current Severity: Moderate Pain Intensity: 8 Pain Scale Used: 0-10 Numeric Chest Pain Location: Mid Sternal Chest Pain Radiates: Yes Chest Pain Radiates To:: Back, Epigastric, Other - lateral right costal region Character: Other: - sharp, shooting Aggravating Factor(s): Nothing Alleviating Factor(s): Nothing Associated Signs and Symptoms: Positive: Chest Pain - mid-sternal/epigastric, Shortness of Breath, Nausea, Nonproductive Cough. Negative: Fever, Chills - Allergy/Home Medications Allergies/Adverse Reactions: Allergies Allergy/AdvReac Type Severity Reaction Status Date / Time No Known Allergies Allergy Verified 04/14/18 21:30 Home Medications: Home Medications NK [No Home Medications Reported] 04/14/18 [History Confirmed 04/14/18] PMH/Surg Hx/FS Hx/Imm Hx Endocrine/Hematology History: Denies: Hx Anticoagulant Therapy, Hx Blood Disorders, Hx Diabetes Cardiovascular History: Denies: Hx Hypertension GI History: Reports: Hx Gastroesophageal Reflux Disease, Hx Ulcer - gastric History: Denies: Hx Dialysis, Hx Renal Disease Psychiatric History: Reports: Hx Anxiety, Hx Depression - Surgical History Surgery Procedure, Year, and Place: n/a - Immunization History Date of Tetanus Vaccine: unk Date of Influenza Vaccine: none Infectious Disease History: No Infectious Disease History: Denies: Hx of Known/Suspected MRSA, Traveled Outside the [place] in Last 30 Days - Family History Known Family History: Positive: Cardiac Disease - father , Diabetes, Renal Disease - mother kidney failure, Other - [place] - Social History Alcohol Use: None Hx Substance Use: No Substance Use Type: Reports: None Substance Use Comment - Amount & Last Used: pt denies Hx Tobacco Use: No Smoking Status (MU): Never Smoked Tobacco Review of Systems Negative: Fever, Chills Positive: Chest Pain - epigastric pain radiating to the right costal region and back Positive: Shortness Of Breath, Cough - nonproductive Negative: Nausea All Other Systems Reviewed And Are Negative: Yes Physical Exam - Summary Physical Exam Summary: Appearance: Well-appearing, Well-nourished, lying in bed comfortably Skin: Warm, dry, no obvious rash Eyes: sclera anicteric, no conjunctival pallor ENT: mucous membranes moist, pharynx appears normal Neck: Supple, nontender Respiratory: Clear to auscultation, no signs of respiratory distress Cardiovascular: Normal S1, S2. No murmurs. Normal distal pulses in tibial and radial bilaterally. Abdomen: Soft, nontender, normal active bowel sounds present Musculoskeletal: Strength/ROM Intact, Tenderness at costochondral junction in the lower part of the chest wall Neurological: A&Ox3, awake and alert, mentation is normal, speech is fluent and appropriate Psychiatric: affect is normal, does not appear anxious or depressed Triage Information Reviewed: Yes Vital Signs On Initial Exam: Initial Vitals Temp Pulse Resp BP Pulse Ox 98.2 F 74 12 107/75 99 04/14/18 18:14 04/14/18 18:14 04/14/18 18:14 04/14/18 18:14 04/14/18 18:14 Vital Signs Reviewed: Yes Diagnostics - Vital Signs Vital Signs Temp Pulse Resp BP Pulse Ox 04/14/18 20:16 97.5 F 69 16 122/58 99 04/14/18 18:14 98.2 F 74 12 107/75 99 - Laboratory Lab Results: Lab Results 04/14/18 04/14/18 04/14/18 Range/Units 19:15 19:15 19:15 WBC 11.6 H (3.5-10.8) 10^3/ul RBC 4.78 (4.00-5.40) 10^6/ul Hgb 15.0 (12.0-16.0) g/dl Hct 45 (35-47) % MCV 94 (80-97) fL MCH 31 (27-31) pg MCHC 33 (31-36) g/dl RDW 14 (10.5-15) % Plt Count 298 (150-450) 10^3/ul MPV 7.6 (7.4-10.4) um3 Neut % (Auto) 77.7 (38-83) % Lymph % (Auto) 12.4 L (25-47) % Rush % (Auto) 9.0 H (0-7) % Eos % (Auto) 0.5 (0-6) % Baso % (Auto) 0.4 (0-2) % Absolute Neuts (auto) 9.0 H (1.5-7.7) 10^3/ul Absolute Lymphs (auto) 1.4 (1.0-4.8) 10^3/ul Absolute Monos (auto) 1.0 H (0-0.8) 10^3/ul Absolute Eos (auto) 0.1 (0-0.6) 10^3/ul Absolute Basos (auto) 0 (0-0.2) 10^3/ul Absolute Nucleated RBC 0 10^3/ul Nucleated RBC % 0 Sodium 140 (135-145) mmol/L Potassium 3.9 (3.5-5.0) mmol/L Chloride 106 (101-111) mmol/L Carbon Dioxide 25 (22-32) mmol/L Anion Gap 9 (2-11) mmol/L BUN 19 (6-24) mg/dL Creatinine 0.96 H (0.51-0.95) mg/dL Est GFR ( Amer) 75.7 (>60) Est GFR (Non-Af Amer) 62.6 (>60) BUN/Creatinine Ratio 19.8 (8-20) Glucose 105 H (70-100) mg/dL Lactic Acid 0.9 (0.5-2.0) mmol/L Calcium 9.2 (8.6-10.3) mg/dL Total Bilirubin 1.40 H (0.2-1.0) mg/dL AST 19 (13-39) U/L ALT 13 (7-52) U/L Alkaline Phosphatase 62 (34-104) U/L Troponin I 0.00 (<0.04) ng/mL Total Protein 7.1 (6.4-8.9) g/dL Albumin 4.3 (3.2-5.2) g/dL Globulin 2.8 (2-4) g/dL Albumin/Globulin Ratio 1.5 (1-3) Result Diagrams: 04/14/18 19:15 04/14/18 19:15 Lab Statement: Any lab studies that have been ordered have been reviewed, and results considered in the medical decision making process. - Radiology CXR Xray Interpretation: No Acute Changes - No acute disease. ED physician has reviewed this report. Radiology Interpretation Completed By: Radiologist - EKG 18:48 Cardiac Rate: NL - 70 BPM EKG Rhythm: Sinus Rhythm EKG Interpretation: P waves, QRS complex, T waves and intervals nml, no ischemic changes Chest Pain Course/Dx - Course Course Of Treatment: The patient is a 47 y/o F presenting to [facility] with a chief complaint of mid-sternal and epigastric chest pain starting three days ago. The pain radiates to the right lateral costal region and into her back. The pain has gradually worsened from intermediate episodes into a constant sharp and shooting pain that is currently rated 8/10 in severity. She additionally c/o nausea, SOB, and nonproductive cough. She denies fevers and chills. Hx of GERD. FHx of cardiac disease. Nonsmoker. The physical exam reveals tenderness at the right costochondral region. In the ED course, lab results show no significant results. EKG is normal. CXR is negative. Based upon pt's symptoms and lab and imaging results, she will be diagnosed and sent home with instructions for costochondritis. Return precautions given for worsening of symptoms. She understands the importance for the need to return to the ER for any new or worsening symptoms, and she agrees with the plan to be discharged home. - Diagnoses Provider Diagnoses: Costochondritis Discharge - Sign-Out/Discharge Documenting (check all that apply): Patient Departure - Patient will be discharged home. - Discharge Plan Condition: Good Disposition: HOME Patient Education Materials: Costochondritis (ED) Referrals: Magaly Acevedo NP [Primary Care Provider] - - Billing Disposition and Condition Condition: GOOD Disposition: Home - Attestation Statements Document Initiated by Giorgio: Yes Documenting Scribe: Cathleen Cardenas Provider For Whom Girogio is Documenting (Include Credential): Dr. Goldy Gilliam MD Scribe Attestation: Cathleen Pisano scribed for Dr. Goldy Gilliam MD on 04/14/18 at 2343. Scribe Documentation Reviewed: Yes Provider Attestation: The documentation as recorded by the Cathleen maguire accurately reflects the service I personally performed and the decisions made by me, Dr. Goldy Gilliam MD
[2018-04-14 21:38] VITALS: BP 143/70
--- NOTE | 2018-04-15 07:41 | RAD ---
HISTORY: cp COMPARISONS: August 28, 2016 VIEWS: 4: Frontal dual-energy and lateral views of the chest. FINDINGS: CARDIOMEDIASTINAL SILHOUETTE: The cardiomediastinal silhouette is normal. SUSANNA: The susanna are normal. PLEURA: The costophrenic angles are sharp. No pleural abnormalities are noted. LUNG PARENCHYMA: The lungs are clear. ABDOMEN: The upper abdomen is clear. There is no subphrenic gas. BONES AND SOFT TISSUES: No bone or soft tissue abnormalities are noted. OTHER: None. IMPRESSION: NO ACTIVE CARDIOPULMONARY DISEASE. R0
== END | disposition home or self-care (01) ==
LOC: ED 18:05
DX: M94.0 Chondrocostal junction syndrome [Tietze] (principal); R07.9 Chest pain, unspecified; R06.02 Shortness of breath; R05 Cough
CPT/HCPCS: 36415; 71046; 80053; 83605; 84484; 85025; 93005; 99282

== ENCOUNTER 2018-04-22 14:40 | Emergency (ER) | payer MEDICARE, MEDICAID ==
--- NOTE | 2018-04-22 20:05 | ED ---
Throat Pain/Nasal Congestion - HPI Summary HPI Summary: 47-year-old female presents with headache and ear pain for the past couple hours. She says started with ear pain. She states that her ears feel full. She states has history of ear infections and that feels similar as may be start on infection. She has not been swimming recently. She admits to sinus congestion. She said she took some ibuprofen which helps with the pain. she has pain intensity 7 out of 10 intensity. Not worse headache of life. No change in vision. No dizziness. She does have a history of a brain mass. - History of Current Complaint Chief Complaint: EDHeadache Time Seen by Provider: 04/22/18 20:05 - Allergies/Home Medications Allergies/Adverse Reactions: Allergies Allergy/AdvReac Type Severity Reaction Status Date / Time No Known Allergies Allergy Verified 04/14/18 21:30 PMH/Surg Hx/FS Hx/Imm Hx Endocrine/Hematology History: Denies: Hx Anticoagulant Therapy, Hx Blood Disorders, Hx Diabetes Cardiovascular History: Denies: Hx Hypertension GI History: Reports: Hx Gastroesophageal Reflux Disease, Hx Ulcer - gastric History: Denies: Hx Dialysis, Hx Renal Disease Psychiatric History: Reports: Hx Anxiety, Hx Depression - Surgical History Surgery Procedure, Year, and Place: n/a - Immunization History Date of Tetanus Vaccine: unk Date of Influenza Vaccine: none Infectious Disease History: No Infectious Disease History: Denies: Hx of Known/Suspected MRSA, Traveled Outside the [place] in Last 30 Days - Family History Known Family History: Positive: Cardiac Disease - father , Diabetes, Renal Disease - mother kidney failure, Other - [place] - Social History Alcohol Use: None Hx Substance Use: No Substance Use Type: Reports: None Substance Use Comment - Amount & Last Used: pt denies Hx Tobacco Use: No Smoking Status (MU): Never Smoked Tobacco Review of Systems Negative: Fever Positive: Ear Ache Negative: Chest Pain Negative: Shortness Of Breath Positive: Headache All Other Systems Reviewed And Are Negative: Yes Physical Exam Triage Information Reviewed: Yes Vital Signs On Initial Exam: Initial Vitals Temp Pulse Resp BP Pulse Ox 97.8 F 78 18 113/68 100 04/22/18 15:10 04/22/18 15:10 04/22/18 15:10 04/22/18 15:10 04/22/18 15:10 Vital Signs Reviewed: Yes Appearance: Positive: Well-Appearing Skin: Positive: Warm, Dry Head/Face: Positive: Normal Head/Face Inspection Eyes: Positive: Normal, Conjunctiva Clear ENT: Positive: Normal ENT inspection, Pharynx normal, TMs normal - fluid behind bilateral tm. Negative: Sinus tenderness Respiratory/Lung Sounds: Positive: Clear to Auscultation, Breath Sounds Present Cardiovascular: Positive: Normal, RRR Abdomen Description: Positive: Nontender, Soft Bowel Sounds: Positive: Present Musculoskeletal: Positive: Normal Neurological: Positive: Sensory/Motor Intact, Alert, Oriented to Person Place, Time, CN Intact II-III, Finger to Nose Psychiatric: Positive: Normal Diagnostics - Vital Signs Vital Signs Temp Pulse Resp BP Pulse Ox 04/22/18 15:10 97.8 F 78 18 113/68 100 - Laboratory Lab Statement: Any lab studies that have been ordered have been reviewed, and results considered in the medical decision making process. EENT Course/Dx - Course Course Of Treatment: 47-year-old female presents with headache and ear pain for the past couple hours. She says started with ear pain. She states that her ears feel full. She states has history of ear infections and that feels similar as may be start on infection. She has not been swimming recently. She admits to sinus congestion. She said she took some ibuprofen which helps with the pain. she has pain intensity 7 out of 10 intensity. Not worse headache of life. No change in vision. No dizziness. She does have a history of a brain mass. on exam normal neuro exam. Fluids behind bilateral TMs. Ear canal normal. Normal neuro exam. Ambulates with a steady gait. Will treat with Flonase and Sudafed for potential eustarian tube dysfunction. Told if anything changes to return to ED. Patient understands agrees plan. - Differential Diagnoses Differential Diagnoses: Otitis Externa, Otitis Media, Sinusitis - Diagnoses Provider Diagnoses: Headache, Ear pain Discharge - Sign-Out/Discharge Documenting (check all that apply): Patient Departure - Discharge Plan Condition: Good Disposition: HOME Prescriptions: Fluticasone NASAL SPRAY 50MCG* [Flonase NASAL SPRAY 50MCG*] 2 spray BOTH NARES DAILY #1 btl Pseudoephedrine TAB* [Sudafed TAB*] 30 mg PO BID #14 tab Patient Education Materials: General Headache (ED) Referrals: Magaly Acevedo NP [Primary Care Provider] - Additional Instructions: chew gum take sudafed twice a day Take flonase two puff each nostril Take tyenlol or ibuprofen every 6 hours as needed for pain Return to ED if develop any new or worsening symptoms - Billing Disposition and Condition Condition: GOOD Disposition: Home
[2018-04-22] MEDS ORDERED: Pseudoephedrine TAB* 30 MG PO ONE (20:11)
[2018-04-22 20:27] VITALS: BP 120/70
== END 2018-04-22 20:36 | disposition home or self-care (01) ==
LOC: ED 14:40
DX: R51 Headache (principal); H92.09 Otalgia, unspecified ear
CPT/HCPCS: 99282; A9270-GY

== ENCOUNTER 2018-05-10 19:20 | Emergency (ER) | payer MEDICARE, MEDICAID ==
[2018-05-10] MEDS ORDERED: NS 0.9% 1000 ML* 1,000 ML IV ONE (19:46)
--- NOTE | 2018-05-10 19:46 | ED ---
Complex/Multi-Sys Presentation - HPI Summary HPI Summary: A 47 y/o F presents to ED with c/o R-sided chest wall pain onset approx 1500. Associated sx: midsternal CP, low back pain, DAMON. Initially, pt thought it was heart burn, PMHx: GERD and ulcers, but the pain did not resolve. Pt denies previous surgeries. Pt takes daily medication for anxiety, depression, ulcers, GERD. - History Of Current Complaint Chief Complaint: EDGeneral Time Seen by Provider: 05/10/18 19:41 Hx Obtained From: Patient Onset/Duration: Lasting Hours, Still Present Timing: Constant Severity Currently: Moderate Severity Initially: Moderate Associated Signs And Symptoms: Positive: Headache, Chest Pain - mid-sternal, R- side chest wall, Back Pain - lower back - Allergies/Home Medications Allergies/Adverse Reactions: Allergies Allergy/AdvReac Type Severity Reaction Status Date / Time No Known Allergies Allergy Verified 05/10/18 19:28 PMH/Surg Hx/FS Hx/Imm Hx Previously Healthy: No Endocrine/Hematology History: Denies: Hx Anticoagulant Therapy, Hx Blood Disorders, Hx Diabetes Cardiovascular History: Denies: Hx Hypertension GI History: Reports: Hx Gastroesophageal Reflux Disease, Hx Ulcer - gastric History: Denies: Hx Dialysis, Hx Renal Disease Psychiatric History: Reports: Hx Anxiety, Hx Depression - Surgical History Surgery Procedure, Year, and Place: n/a - Immunization History Date of Tetanus Vaccine: unk Date of Influenza Vaccine: none Infectious Disease History: No Infectious Disease History: Denies: Hx of Known/Suspected MRSA, Traveled Outside the [place] in Last 30 Days - Family History Known Family History: Positive: Cardiac Disease - father , Diabetes, Renal Disease - mother kidney failure, Other - [place] - Social History Occupation: Unemployed Lives: With Family Alcohol Use: None Hx Substance Use: No Substance Use Type: Reports: None Substance Use Comment - Amount & Last Used: pt denies Hx Tobacco Use: No Smoking Status (MU): Never Smoked Tobacco Review of Systems Negative: Fever Positive: Chest Pain - R-side cheast wall and mid-sternal Positive: Other - pos: low back pain Positive: Headache All Other Systems Reviewed And Are Negative: Yes Physical Exam - Summary Physical Exam Summary: VITAL SIGNS: Reviewed. GENERAL: Patient is a well-developed and nourished FEMALE who is lying comfortable in the stretcher. Patient is not in any acute respiratory distress. HEAD AND FACE: No signs of trauma. No ecchymosis, hematomas or skull depressions. No sinus tenderness. EYES: PERRLA, EOMI x 2, No injected conjunctiva, no nystagmus. EARS: Hearing grossly intact. Ear canals and tympanic membranes are within normal limits. MOUTH: Oropharynx within normal limits. NECK: Supple, trachea is midline, no adenopathy, no JVD, no carotid bruit, no c- spine tenderness, neck with full ROM. CHEST: Symmetric, tenderness over R chest wall. LUNGS: Clear to auscultation bilaterally. No wheezing or crackles. CVS: Regular rate and rhythm, S1 and S2 present, no murmurs or gallops appreciated. ABDOMEN: Soft, non-tender. No signs of distention. No rebound no guarding, and no masses palpated. Bowel sounds are normal. EXTREMITIES: FROM in all major joints, no edema, no cyanosis or clubbing. NEURO: Alert and oriented x 3. No acute neurological deficits. Speech is normal and follows commands. SKIN: Dry and warm Triage Information Reviewed: Yes Vital Signs On Initial Exam: Initial Vitals Temp Pulse Resp BP Pulse Ox 97.7 F 70 16 124/75 99 05/10/18 19:25 05/10/18 19:25 05/10/18 19:25 05/10/18 19:25 05/10/18 19:25 Vital Signs Reviewed: Yes Diagnostics - Vital Signs Vital Signs Temp Pulse Resp BP Pulse Ox 05/10/18 19:25 97.7 F 70 16 124/75 99 - Laboratory Result Diagrams: 05/10/18 19:53 05/10/18 19:53 Lab Statement: Any lab studies that have been ordered have been reviewed, and results considered in the medical decision making process. Re-Evaluation - Re-Evaluation 1 Re-Evaluation Time: 20:49 Change: Improved Comment: After medication, pt is feeling better. Will D/C home. Complex Multi-Symp Course/Dx Course Of Treatment: Pt is a 47 y/o F presenting with c/o R-sided chest wall pain, mid-sternal CP, lower back pain and DAMON. Pt given Benadryl, Toradol, Reglan and IV fluids in ED. After medication, pt is feeling better. Will D/C pt home. - Diagnoses Provider Diagnoses: Headache Discharge - Sign-Out/Discharge Documenting (check all that apply): Patient Departure - DC - Discharge Plan Condition: Stable Disposition: HOME Patient Education Materials: Acute Headache (ED) Referrals: Magaly Acevedo NP [Primary Care Provider] - 3 Days Additional Instructions: Follow up with your primary care provider in 2-3 days. RETURN TO THE EMERGENCY DEPARTMENT FOR CHANGING OR WORSENING SYMPTOMS. - Attestation Statements Document Initiated by Scribe: Yes Documenting Scribe: Richard Harmon Provider For Whom Scribe is Documenting (Include Credential): Dr. Donnie Berrios MD Scribe Attestation: IRichard, scribed for Dr. Donnie Berrios MD on 05/10/18 at 2052.
[2018-05-10] MEDS ORDERED: Metoclopramide IV* 5 MG/ML 2 ML VIAL IV SLOW PU ONE (19:47)
[2018-05-10] MEDS ORDERED: diPHENhydraMINE IV* 50 MG/ML 1 ml VIAL (BENADRYL) SLOW PUSH ONE (19:47)
[2018-05-10] MEDS ORDERED: Ketorolac INJ* 30 MG/ML 1 ML VIAL IV PUSH ONE (19:47)
[2018-05-10] MEDS ORDERED: diPHENhydraMINE PO* 25 MG ONE (20:00)
[2018-05-10 20:04] LABS: ABS Basophils 0 10^3/ul (0-0.2); ABS Eosinophils 0.1 10^3/ul (0-0.6); ABS Lymphocytes 1.7 10^3/ul (1.0-4.8); ABS Monocytes 0.9 10^3/ul (0-0.8); ABS Neutrophils 7.7 10^3/ul (1.5-7.7); ABS Nucleated RBC 0 10^3/ul; Eosinophil % 0.8 % (0-6); Hematocrit 42 % (35-47); Hemoglobin 14.2 g/dl (12.0-16.0); Lymphocyte % 16.2 % (25-47); Mean Corpuscular HGB Conc 34 g/dl (31-36); Mean Corpuscular Hemoglobin 32 pg (27-31); Mean Corpuscular Volume 94 fL (80-97); Mean Platelet Volume 7.7 um3 (7.4-10.4); Nucleated Red Blood Cells % 0.2; Platelet Count 256 10^3/ul (150-450); Red Blood Count 4.43 10^6/ul (4.00-5.40); Red Cell Distribution Width 13 % (10.5-15); White Blood Count 10.4 10^3/ul (3.5-10.8)
[2018-05-10] MEDS ORDERED: diPHENhydraMINE PO* 25 MG PO ONE (20:21)
[2018-05-10 21:13] VITALS: BP 132/81
== END 2018-05-10 21:00 | disposition home or self-care (01) ==
LOC: ED 19:20
DX: R51 Headache (principal); R07.89 Other chest pain; M54.5 Low back pain
CPT/HCPCS: 36415; 80053; 85025; 96361; 96374; 96375; 99282; A9270-GY; J1885; J2765

== ENCOUNTER → 2018-07-02 20:36 | Emergency (ER) | payer MEDICARE, MEDICAID ==
[2018-07-02 22:36] LABS: ABS Basophils 0 10^3/ul (0-0.2); ABS Eosinophils 0.1 10^3/ul (0-0.6); ABS Lymphocytes 2.1 10^3/ul (1.0-4.8); ABS Monocytes 0.9 10^3/ul (0-0.8); ABS Neutrophils 7.4 10^3/ul (1.5-7.7); ABS Nucleated RBC 0 10^3/ul; Eosinophil % 0.9 %; Hematocrit 44 % (35-47); Hemoglobin 14.7 g/dl (12.0-16.0); Lymphocyte % 19.8 %; Mean Corpuscular HGB Conc 34 g/dl (31-36); Mean Corpuscular Hemoglobin 32 pg (27-31); Mean Corpuscular Volume 95 fL (80-97); Mean Platelet Volume 8.1 fL (7.4-10.4); Nucleated Red Blood Cells % 0.1; Platelet Count 300 10^3/ul (150-450); Red Blood Count 4.63 10^6/ul (4.00-5.40); Red Cell Distribution Width 13 % (10.5-15); White Blood Count 10.6 10^3/ul (3.5-10.8)
[2018-07-02 22:44] LABS: INR 1.06 (0.77-1.02)
[2018-07-02 22:47] LABS: EGFR Non-African American 67.4 (>60)
[2018-07-03 00:07] LABS: Urine Appearance Clear; Urine Blood 2+ (Negative); Urine Color Yellow; Urine Ketones Negative (Negative); Urine Protein Negative (Negative); Urine Red Blood Cell 1+(3-5/hpf) (Absent); Urine Specific Gravity 1.023 (1.010-1.030); Urine Urobilinogen Negative (Negative); Urine White Blood Cell Trace(0-5/hpf) (Absent)
--- NOTE | 2018-07-03 00:16 | ED ---
GI/ HPI - HPI Summary HPI Summary: 47-year-old female presents with frequency today. She admits to some lower abdominal pain. She denies any dysuria. She denies any hematuria. No flank pain. No nausea vomiting or diarrhea. She denies any chest pain or shortness breath. Denies any abnormal vaginal discharge. She denies any pelvic pain. She has history of ovarian cysts. no fevers. - History of Current Complaint Chief Complaint: EDAbdPain Time Seen by Provider: 07/02/18 23:42 Stated Complaint: ABD PAIN Hx Last Menstrual Period: 5/days Pain Intensity: 6 - Allergy/Home Medications Allergies/Adverse Reactions: Allergies Allergy/AdvReac Type Severity Reaction Status Date / Time No Known Allergies Allergy Verified 06/25/18 22:29 PMH/Surg Hx/FS Hx/Imm Hx Endocrine/Hematology History: Denies: Hx Anticoagulant Therapy, Hx Blood Disorders, Hx Diabetes Cardiovascular History: Denies: Hx Hypertension GI History: Reports: Hx Gastroesophageal Reflux Disease, Hx Ulcer - gastric History: Denies: Hx Dialysis, Hx Renal Disease Psychiatric History: Reports: Hx Anxiety, Hx Depression - Surgical History Surgery Procedure, Year, and Place: n/a - Immunization History Date of Tetanus Vaccine: unk Date of Influenza Vaccine: none Infectious Disease History: No Infectious Disease History: Denies: Hx of Known/Suspected MRSA, Traveled Outside the [place] in Last 30 Days - Family History Known Family History: Positive: Cardiac Disease - father , Diabetes, Renal Disease - mother kidney failure, Other - [place] - Social History Alcohol Use: None Hx Substance Use: No Substance Use Type: Reports: None Substance Use Comment - Amount & Last Used: pt denies Hx Tobacco Use: No Smoking Status (MU): Never Smoked Tobacco Review of Systems Negative: Fever Negative: Chest Pain Negative: Shortness Of Breath Positive: Abdominal Pain. Negative: Vomiting, Diarrhea, Nausea Positive: frequency All Other Systems Reviewed And Are Negative: Yes Physical Exam Triage Information Reviewed: Yes Vital Signs On Initial Exam: Initial Vitals Temp Pulse Resp BP Pulse Ox 98.9 F 73 18 108/73 100 07/02/18 20:37 07/02/18 20:37 07/02/18 20:37 07/02/18 20:37 07/02/18 20:37 Vital Signs Reviewed: Yes Appearance: Positive: Well-Appearing Skin: Positive: Warm, Dry Head/Face: Positive: Normal Head/Face Inspection Eyes: Positive: Normal, Conjunctiva Clear ENT: Positive: Pharynx normal Respiratory/Lung Sounds: Positive: Clear to Auscultation, Breath Sounds Present Cardiovascular: Positive: Normal, RRR Abdomen Description: Positive: Soft, Other: - mild tenderness suprapubic. Negative: CVA Tenderness (R), CVA Tenderness (L) Musculoskeletal: Positive: Normal Neurological: Positive: Normal Psychiatric: Positive: Normal Diagnostics - Vital Signs Vital Signs Temp Pulse Resp BP Pulse Ox 07/02/18 22:55 98.6 F 63 18 114/79 100 07/02/18 20:37 98.9 F 73 18 108/73 100 - Laboratory Lab Results: Lab Results 07/02/18 07/02/18 07/02/18 Range/Units 22:13 22:13 22:13 WBC 10.6 (3.5-10.8) 10^3/ul RBC 4.63 (4.00-5.40) 10^6/ul Hgb 14.7 (12.0-16.0) g/dl Hct 44 (35-47) % MCV 95 (80-97) fL MCH 32 H (27-31) pg MCHC 34 (31-36) g/dl RDW 13 (10.5-15) % Plt Count 300 (150-450) 10^3/ul MPV 8.1 (7.4-10.4) fL Neut % (Auto) 70.2 % Lymph % (Auto) 19.8 % [place] % (Auto) 8.7 % Eos % (Auto) 0.9 % Baso % (Auto) 0.4 % Absolute Neuts (auto) 7.4 (1.5-7.7) 10^3/ul Absolute Lymphs (auto) 2.1 (1.0-4.8) 10^3/ul Absolute Monos (auto) 0.9 H (0-0.8) 10^3/ul Absolute Eos (auto) 0.1 (0-0.6) 10^3/ul Absolute Basos (auto) 0 (0-0.2) 10^3/ul Absolute Nucleated RBC 0 10^3/ul Nucleated RBC % 0.1 INR (Anticoag Therapy) 1.06 H (0.77-1.02) APTT 31.9 (26.0-36.3) seconds Sodium 139 (135-145) mmol/L Potassium 3.6 (3.5-5.0) mmol/L Chloride 107 (101-111) mmol/L Carbon Dioxide 25 (22-32) mmol/L Anion Gap 7 (2-11) mmol/L BUN 17 (6-24) mg/dL Creatinine 0.90 (0.51-0.95) mg/dL Est GFR ( Amer) 81.6 (>60) Est GFR (Non-Af Amer) 67.4 (>60) BUN/Creatinine Ratio 18.9 (8-20) Glucose 87 (70-100) mg/dL Calcium 9.3 (8.6-10.3) mg/dL Total Bilirubin 0.80 (0.2-1.0) mg/dL AST 16 (13-39) U/L ALT 11 (7-52) U/L Alkaline Phosphatase 60 (34-104) U/L Total Protein 6.6 (6.4-8.9) g/dL Albumin 4.2 (3.2-5.2) g/dL Globulin 2.4 (2-4) g/dL Albumin/Globulin Ratio 1.8 (1-3) Lipase 28 (11.0-82.0) U/L Beta HCG, Quant < 0.60 mIU/mL Urine Color Urine Appearance Urine pH (5-9) Ur Specific [place] (1.010-1.030) Urine Protein (Negative) Urine Ketones (Negative) Urine Blood (Negative) Urine Nitrate (Negative) Urine Bilirubin (Negative) Urine Urobilinogen (Negative) Ur Leukocyte Esterase (Negative) Urine WBC (Auto) (Absent) Urine RBC (Auto) (Absent) Ur Squamous Epith Cells (Absent) Urine Bacteria (Absent) Hyaline Casts (Absent) Urine Glucose (Negative) 07/02/18 Range/Units 23:54 WBC (3.5-10.8) 10^3/ul RBC (4.00-5.40) 10^6/ul Hgb (12.0-16.0) g/dl Hct (35-47) % MCV (80-97) fL MCH (27-31) pg MCHC (31-36) g/dl RDW (10.5-15) % Plt Count (150-450) 10^3/ul MPV (7.4-10.4) fL Neut % (Auto) % Lymph % (Auto) % [place] % (Auto) % Eos % (Auto) % Baso % (Auto) % Absolute Neuts (auto) (1.5-7.7) 10^3/ul Absolute Lymphs (auto) (1.0-4.8) 10^3/ul Absolute Monos (auto) (0-0.8) 10^3/ul Absolute Eos (auto) (0-0.6) 10^3/ul Absolute Basos (auto) (0-0.2) 10^3/ul Absolute Nucleated RBC 10^3/ul Nucleated RBC % INR (Anticoag Therapy) (0.77-1.02) APTT (26.0-36.3) seconds Sodium (135-145) mmol/L Potassium (3.5-5.0) mmol/L Chloride (101-111) mmol/L Carbon Dioxide (22-32) mmol/L Anion Gap (2-11) mmol/L BUN (6-24) mg/dL Creatinine (0.51-0.95) mg/dL Est GFR ( Amer) (>60) Est GFR (Non-Af Amer) (>60) BUN/Creatinine Ratio (8-20) Glucose (70-100) mg/dL Calcium (8.6-10.3) mg/dL Total Bilirubin (0.2-1.0) mg/dL AST (13-39) U/L ALT (7-52) U/L Alkaline Phosphatase (34-104) U/L Total Protein (6.4-8.9) g/dL Albumin (3.2-5.2) g/dL Globulin (2-4) g/dL Albumin/Globulin Ratio (1-3) Lipase (11.0-82.0) U/L Beta HCG, Quant mIU/mL Urine Color Yellow Urine Appearance Clear Urine pH 5.0 (5-9) Ur Specific [place] 1.023 (1.010-1.030) Urine Protein Negative (Negative) Urine Ketones Negative (Negative) Urine Blood 2+ A (Negative) Urine Nitrate Negative (Negative) Urine Bilirubin Negative (Negative) Urine Urobilinogen Negative (Negative) Ur Leukocyte Esterase Negative (Negative) Urine WBC (Auto) Trace(0-5/hpf) (Absent) Urine RBC (Auto) 1+(3-5/hpf) A (Absent) Ur Squamous Epith Cells Present A (Absent) Urine Bacteria Absent (Absent) Hyaline Casts Present A (Absent) Urine Glucose Negative (Negative) Result Diagrams: 07/02/18 22:13 07/02/18 22:13 Lab Statement: Any lab studies that have been ordered have been reviewed, and results considered in the medical decision making process. GIGU Course/Dx - Course Course Of Treatment: 47-year-old female presents with frequency today. She admits to some lower abdominal pain. She denies any dysuria. She denies any hematuria. No flank pain. No nausea vomiting or diarrhea. She denies any chest pain or shortness breath. Denies any abnormal vaginal discharge. She denies any pelvic pain. She has history of ovarian cysts. On exam patient appears comfortable. Negative CVA tenderness. Mild suprapubic tenderness. No nontender over adenexa. Labs within normal limits. Urine shows blood. Patient does not have a history of stones and pain is mild. Patient has had multiple CTs in the past years do not want to radiate patient. no ultrasound available at this time. Discuss if anything changes to return. Patient understands and agrees plan. - Diagnoses Differential Diagnoses - Female: STD, Urinary Tract Infection, Ureteral Calculi Provider Diagnoses: Frequency of urination Discharge - Sign-Out/Discharge Documenting (check all that apply): Patient Departure - Discharge Plan Condition: Good Disposition: HOME Referrals: Magaly Acevedo NP [Primary Care Provider] - Additional Instructions: Follow up with primary within 5 days Drink fluids Return to ED if develop any new or worsening symptoms - Billing Disposition and Condition Condition: GOOD Disposition: Home
[2018-07-03 00:26] VITALS: BP 109/73
== END | disposition home or self-care (01) ==
LOC: ED 20:36
DX: R35.0 Frequency of micturition (principal); R10.9 Unspecified abdominal pain
CPT/HCPCS: 36415; 80053; 81003; 81015; 83690; 84702; 85025; 85610; 85730; 87086; 99282

== ENCOUNTER 2018-07-09 23:52 | Emergency (ER) | payer MEDICARE, MEDICAID ==
[2018-07-10] MEDS ORDERED: Ketorolac INJ* 30 MG/ML 1 ML VIAL IV PUSH ONE (02:46)
[2018-07-10] MEDS ORDERED: Metoclopramide IV* 5 MG/ML 2 ML VIAL IV SLOW PU ONE (02:46)
[2018-07-10] MEDS ORDERED: NS 0.9% 1000 ML* 1,000 ML IV ONE (02:46)
[2018-07-10] MEDS ORDERED: diPHENhydraMINE PO* 50 MG PO ONE (02:46)
--- NOTE | 2018-07-10 03:22 | ED ---
Complex/Multi-Sys Presentation - HPI Summary HPI Summary: Patient is a 47 y/o F presenting to ED with complaints of DAMON and back pain since 1700 on 07/09. She is concerned that she pulled a muscle while shovelling snow. Patient took ibuprofen with no relief in Sx. N/V denied, mild photophobia reported. She reports normal bowel movements and urination as well. On triage, pain is rated 8/10, nothing is noted to aggravate/alleviate Sx. Home medications and allergies are reviewed. - History Of Current Complaint Chief Complaint: EDBackInjuryPain Time Seen by Provider: 07/10/18 02:34 Hx Obtained From: Patient Onset/Duration: Lasting Hours - since 1700 last night, Still Present Timing: Constant, Hours Severity Currently: Severe - 8/10 Location: Pain At: - back, DAMON Character: Typical Headache Aggravating Factor(s): nothing Alleviating Factor(s): nothing Associated Signs And Symptoms: Positive: Headache, Back Pain, Other - POSITIVE - PHOTOPHOBIA; NEGATIVE - ABNORMAL BOWEL MOVEMENTS/URINATION. Negative: Nausea , Vomiting - Allergies/Home Medications Allergies/Adverse Reactions: Allergies Allergy/AdvReac Type Severity Reaction Status Date / Time No Known Allergies Allergy Verified 06/25/18 22:29 PMH/Surg Hx/FS Hx/Imm Hx Endocrine/Hematology History: Denies: Hx Anticoagulant Therapy, Hx Blood Disorders, Hx Diabetes Cardiovascular History: Denies: Hx Hypertension GI History: Reports: Hx Gastroesophageal Reflux Disease, Hx Ulcer - gastric History: Denies: Hx Dialysis, Hx Renal Disease Psychiatric History: Reports: Hx Anxiety, Hx Depression - Surgical History Surgery Procedure, Year, and Place: n/a - Immunization History Date of Tetanus Vaccine: unk Date of Influenza Vaccine: none Infectious Disease History: No Infectious Disease History: Denies: Hx of Known/Suspected MRSA, Traveled Outside the [place] in Last 30 Days - Family History Known Family History: Positive: Cardiac Disease - father , Diabetes, Renal Disease - mother kidney failure, Other - [place] - Social History Alcohol Use: None Hx Substance Use: No Substance Use Type: Reports: None Substance Use Comment - Amount & Last Used: pt denies Hx Tobacco Use: No Smoking Status (MU): Never Smoked Tobacco Review of Systems Positive: Photophobia Negative: Vomiting, Nausea Positive: other - NEGATIVE - ABNORMAL BOWEL MOVEMENTS/URINATION Positive: Other - POSITIVE - BACK PAIN Positive: Headache All Other Systems Reviewed And Are Negative: Yes Physical Exam - Summary Physical Exam Summary: VITAL SIGNS: Reviewed. GENERAL: Patient is a well-developed and nourished female who is lying comfortable in the stretcher. Patient is not in any acute respiratory distress. Lumbar and sacral tenderness noted. HEAD AND FACE: No signs of trauma. No ecchymosis, hematomas or skull depressions. No sinus tenderness. EYES: PERRLA, EOMI x 2, No injected conjunctiva, no nystagmus. EARS: Hearing grossly intact. Ear canals and tympanic membranes are within normal limits. MOUTH: Oropharynx within normal limits. NECK: Supple, trachea is midline, no adenopathy, no JVD, no carotid bruit, no c- spine tenderness, neck with full ROM. CHEST: Symmetric, no tenderness at palpation LUNGS: Clear to auscultation bilaterally. No wheezing or crackles. CVS: Regular rate and rhythm, S1 and S2 present, no murmurs or gallops appreciated. ABDOMEN: Soft, non-tender. No signs of distention. No rebound no guarding, and no masses palpated. Bowel sounds are normal. EXTREMITIES: FROM in all major joints, no edema, no cyanosis or clubbing. Bilateral straight leg test is negative. NEURO: Alert and oriented x 3. No acute neurological deficits. Speech is normal and follows commands. SKIN: Dry and warm Triage Information Reviewed: Yes Vital Signs On Initial Exam: Initial Vitals Temp Pulse Resp BP Pulse Ox 96.9 F 73 20 99/66 97 07/10/18 00:05 07/10/18 00:05 07/10/18 00:05 07/10/18 00:05 07/10/18 00:05 Vital Signs Reviewed: Yes Diagnostics - Vital Signs Vital Signs Temp Pulse Resp BP Pulse Ox 07/10/18 00:05 96.9 F 73 20 99/66 97 - Laboratory Lab Statement: Any lab studies that have been ordered have been reviewed, and results considered in the medical decision making process. Re-Evaluation - Re-Evaluation First Eval Re-Evaluation Time: 04:18 Change: Improved Comment: Patient reports improvement in Sx, patient will be discharged to home and follow up with PCP. Patient is agreeable with this. Complex Multi-Symp Course/Dx Course Of Treatment: Patient is a 47 y/o F presenting to ED with complaints of DAMON and back pain since 1700 on 07/09. She is concerned that she pulled a muscle while shovelling snow. Patient took ibuprofen with no relief in Sx. N/V denied, mild photophobia reported. She reports normal bowel movements and urination as well. On physical exam, lumbar and sacral tenderness noted, FROM in all major joints. Bilateral straight leg test is negative. During ED course, patient was given fluids, 10 mg Reglan IV SLOW PU ONCE ONE, Toradol 30 mg IV PUSH ED ONCE ONE and Benadryl 50 mg PO ED ONCE ONE. Patient reports improvement in Sx, patient will be discharged to home and follow up with PCP. Patient is agreeable with this. - Diagnoses Provider Diagnoses: Lower back pain Discharge - Sign-Out/Discharge Documenting (check all that apply): Patient Departure - DISCHARGE - Discharge Plan Condition: Stable Disposition: HOME Prescriptions: Cyclobenzaprine TAB* [Flexeril 10 MG TAB*] 10 mg PO TID PRN #20 tab MDD 3 PRN Reason: Spasms - Back Ibuprofen TAB* [Motrin TAB* 800 MG] 800 mg PO Q6H PRN #30 tab PRN Reason: Pain - Back Patient Education Materials: Back Pain (ED) Referrals: Magaly Acevedo NP [Primary Care Provider] - 3 Days Additional Instructions: RETURN TO THE EMERGENCY DEPARTMENT FOR CHANGING OR WORSENING SYMPTOMS. FOLLOW UP WITH PRIMARY CARE PHYSICIAN IN THREE DAYS ON THURSDAY. - Billing Disposition and Condition Condition: STABLE Disposition: Home - Attestation Statements Document Initiated by Giorgio: Yes Documenting Scribe: LIBRADO CULP Provider For Whom Giorgio is Documenting (Include Credential): CABRERA HAYNES MD Scribe Attestation: LIBRADO Pisano , scribed for CABRERA HAYNES MD on 07/10/18 at 0628. Scribe Documentation Reviewed: Yes Provider Attestation: The documentation as recorded by the LIBRADO maguire accurately reflects the service I personally performed and the decisions made by , CABRERA HAYNES MD Status of Scribe Document: Viewed
[2018-07-10 05:00] VITALS: BP 120/74
== END 2018-07-10 04:05 | disposition home or self-care (01) ==
LOC: ED 23:52
DX: M54.5 Low back pain (principal); R51 Headache; H53.149 Visual discomfort, unspecified
CPT/HCPCS: 96361; 96374; 96375; 99282; A9270-GY; J1885; J2765

== ENCOUNTER 2018-07-15 23:32 | Emergency (ER) | payer MEDICARE, MEDICAID ==
[2018-07-16] MEDS ORDERED: Ibuprofen TAB* 600 MG PO ONE (00:56)
--- NOTE | 2018-07-16 00:57 | ED ---
Lower Extremity - HPI Summary HPI Summary: Patient complains of right knee pain after mechanical fall while slipping on the ice today. Patient states she has ambulated with pain, denies loss of knee range of motion, head injury, LOC, headache, N/V, EMS, any other pain, injuries or symptoms. - History of Current Complaint Chief Complaint: EDExtremityLower Stated Complaint: RT KNEE PAIN Time Seen by Provider: 07/16/18 00:50 Hx Obtained From: Patient Hx Last Menstrual Period: 5/days Mechanism Of Injury: Fall From A Standing Position Onset of Pain: Immediate Onset/Duration: Hours Severity Initially: Severe Severity Currently: Severe Pain Intensity: 10 Pain Scale Used: 0-10 Numeric Timing: Constant Location: Is Discrete @ Character Of Pain: Aching, Throbbing Associated Signs And Symptoms: Positive: Swelling, Knee Pain Aggravating Factor(s): Standing, Ambulation, Movement, Weight Bearing Alleviating Factor(s): Rest Able to Bear Weight: Yes - Allergies/Home Medications Allergies/Adverse Reactions: Allergies Allergy/AdvReac Type Severity Reaction Status Date / Time No Known Allergies Allergy Verified 07/15/18 23:35 PMH/Surg Hx/FS Hx/Imm Hx Endocrine/Hematology History: Denies: Hx Anticoagulant Therapy, Hx Blood Disorders, Hx Diabetes Cardiovascular History: Denies: Hx Hypertension GI History: Reports: Hx Gastroesophageal Reflux Disease, Hx Ulcer - gastric History: Denies: Hx Dialysis, Hx Renal Disease EENT History: Denies: Hx Deafness Psychiatric History: Reports: Hx Anxiety, Hx Depression - Surgical History Surgery Procedure, Year, and Place: n/a - Immunization History Date of Tetanus Vaccine: unk Date of Influenza Vaccine: none Infectious Disease History: No Infectious Disease History: Denies: Hx of Known/Suspected MRSA, Traveled Outside the [place] in Last 30 Days - Family History Known Family History: Positive: Cardiac Disease - father , Diabetes, Renal Disease - mother kidney failure, Other - [place] - Social History Alcohol Use: None Hx Substance Use: No Substance Use Type: Reports: None Substance Use Comment - Amount & Last Used: pt denies Hx Tobacco Use: No Smoking Status (MU): Never Smoked Tobacco Review of Systems Constitutional: Negative Eyes: Negative ENT: Negative Cardiovascular: Negative Respiratory: Negative Positive: Abdominal Pain Genitourinary: Negative Positive: Arthralgia Skin: Negative Neurological: Negative Psychological: Normal All Other Systems Reviewed And Are Negative: Yes Physical Exam - Summary Physical Exam Summary: Mild swelling to right knee. No erythema, ecchymosis, extra warmth, deformity noted. Full range of motion of right knee with pain. PMS intact distally. Triage Information Reviewed: Yes Vital Signs On Initial Exam: Initial Vitals Temp Pulse Resp BP Pulse Ox 98.2 F 64 16 116/77 99 07/15/18 23:33 07/15/18 23:33 07/15/18 23:33 07/15/18 23:33 07/15/18 23:33 Vital Signs Reviewed: Yes Appearance: Positive: Well-Appearing Skin: Positive: Warm Head/Face: Positive: Normal Head/Face Inspection Eyes: Positive: Normal Neck: Positive: Supple Respiratory/Lung Sounds: Positive: Clear to Auscultation Cardiovascular: Positive: Normal Abdomen Description: Positive: Nontender Musculoskeletal: Positive: Normal Neurological: Positive: Normal Psychiatric: Positive: Normal AVPU Assessment: Alert - [place] Coma Scale Best Eye Response: 4 - Spontaneous Best Motor Response: 6 - Obeys Commands Best Verbal Response: 5 - Oriented Coma Scale Total: 15 Diagnostics - Vital Signs Vital Signs Temp Pulse Resp BP Pulse Ox 07/15/18 23:33 98.2 F 64 16 116/77 99 - Laboratory Lab Statement: Any lab studies that have been ordered have been reviewed, and results considered in the medical decision making process. Lower Extremity Course/Dx - Course Course Of Treatment: Patient complains of right knee pain after mechanical fall while slipping on the ice today. Patient states she has ambulated with pain, denies loss of knee range of motion, head injury, LOC, headache, N/V, EMS, any other pain, injuries or symptoms. Physical exam:Mild swelling to right knee. No erythema, ecchymosis, extra warmth, deformity noted. Full range of motion of right knee with pain. PMS intact distally. X-ray of right knee negative for acute process. Patient given crutches and knee immobilizer. Follow-up with orthopedics if symptoms do not improve. Patient understands and approves of plan. - Diagnoses Provider Diagnoses: Fall, Acute pain of right knee Discharge - Sign-Out/Discharge Documenting (check all that apply): Patient Departure - Discharge Plan Condition: Stable Disposition: HOME Patient Education Materials: Knee Pain (ED) Referrals: Magaly Acevedo NP [Primary Care Provider] - Sudhir Dang MD [Medical Doctor] - Additional Instructions: Ibuprofen, ice, rest, elevation for pain and swelling. If pain persists more than a couple days follow-up with orthopedics Dr. Dang. Return to the ED for any new or worsening symptoms - Billing Disposition and Condition Condition: STABLE Disposition: Home
[2018-07-16 01:19] VITALS: BP 120/74
== END 2018-07-16 01:18 | disposition home or self-care (01) ==
LOC: ED 23:32
DX: R07.9 Chest pain, unspecified (principal); R20.2 Paresthesia of skin
CPT/HCPCS: 99283; A9270-GY

== ENCOUNTER 2018-08-08 17:44 | Emergency (ER) | payer MEDICARE, MEDICAID ==
[2018-08-08] MEDS ORDERED: NS 0.9% 1000 ML* 1,000 ML IV ONE (19:52)
[2018-08-08] MEDS ORDERED: Ketorolac INJ* 30 MG/ML 1 ML VIAL IV PUSH ONE (19:53)
[2018-08-08] MEDS ORDERED: Metoclopramide IV* 5 MG/ML 2 ML VIAL IV SLOW PU ONE (19:54)
--- NOTE | 2018-08-08 19:55 | ED ---
Complex/Multi-Sys Presentation - HPI Summary HPI Summary: This patient is a 47 year old F presenting to [facility] [place] accompanied by a male with a chief complaint of a general illness that began a week ago. The patient reports nausea, DAMON, a full feeling in her ears, suprapubic pain, and diarrhea. The patient rates the pain 7/10 in severity. Patient denies urinary sx. Hx ulcers, GERD, and ovarian cysts. The patient was eating in the waiting room while waiting to be escorted into a room. - History Of Current Complaint Chief Complaint: EDGeneral Time Seen by Provider: 08/08/18 19:22 Hx Obtained From: Patient Onset/Duration: Lasting Weeks - 1, Still Present Timing: Constant Severity Currently: Mild Severity Initially: Mild Associated Signs And Symptoms: Positive: Other - nausea, DAMON, a full feeling in her ears, suprapubic pain, and diarrhea - Allergies/Home Medications Allergies/Adverse Reactions: Allergies Allergy/AdvReac Type Severity Reaction Status Date / Time No Known Allergies Allergy Verified 08/08/18 18:00 PMH/Surg Hx/FS Hx/Imm Hx Endocrine/Hematology History: Denies: Hx Anticoagulant Therapy, Hx Blood Disorders, Hx Diabetes Cardiovascular History: Denies: Hx Hypertension GI History: Reports: Hx Gastroesophageal Reflux Disease, Hx Ulcer - gastric History: Denies: Hx Dialysis, Hx Renal Disease Sensory History: Denies: Hx Deafness Psychiatric History: Reports: Hx Anxiety, Hx Depression - Surgical History Surgery Procedure, Year, and Place: n/a - Immunization History Date of Tetanus Vaccine: unk Date of Influenza Vaccine: none Infectious Disease History: No Infectious Disease History: Denies: Hx of Known/Suspected MRSA, Traveled Outside the [place] in Last 30 Days - Family History Known Family History: Positive: Cardiac Disease - father , Diabetes, Renal Disease - mother kidney failure, Other - [place] - Social History Alcohol Use: None Hx Substance Use: No Substance Use Type: Reports: None Substance Use Comment - Amount & Last Used: pt denies Hx Tobacco Use: No Smoking Status (MU): Never Smoked Tobacco Review of Systems Negative: Fever Positive: Other - full felling in her ears Positive: Abdominal Pain, Diarrhea, Nausea Positive: no symptoms reported Positive: Headache All Other Systems Reviewed And Are Negative: Yes Physical Exam - Summary Physical Exam Summary: VITAL SIGNS: Reviewed. GENERAL: Patient is a well-developed and nourished female who is lying comfortable in the stretcher. Patient is not in any acute respiratory distress. HEAD AND FACE: No signs of trauma. No ecchymosis, hematomas or skull depressions. No sinus tenderness. EYES: PERRLA, EOMI x 2, No injected conjunctiva, no nystagmus. EARS: Hearing grossly intact. Ear canals and tympanic membranes are within normal limits. MOUTH: Oropharynx within normal limits. NECK: Supple, trachea is midline, no adenopathy, no JVD, no carotid bruit, no c- spine tenderness, neck with full ROM. CHEST: Symmetric, no tenderness at palpation LUNGS: Clear to auscultation bilaterally. No wheezing or crackles. CVS: Regular rate and rhythm, S1 and S2 present, no murmurs or gallops appreciated. ABDOMEN: Soft, non-tender. No signs of distention. No rebound no guarding, and no masses palpated. Bowel sounds are normal. EXTREMITIES: FROM in all major joints, no edema, no cyanosis or clubbing. NEURO: Alert and oriented x 3. No acute neurological deficits. Speech is normal and follows commands. SKIN: Dry and warm Triage Information Reviewed: Yes Vital Signs On Initial Exam: Initial Vitals Temp Pulse Resp BP Pulse Ox 97.1 F 67 15 116/71 100 08/08/18 17:57 08/08/18 17:57 08/08/18 17:57 08/08/18 17:57 08/08/18 17:57 Vital Signs Reviewed: Yes Diagnostics - Vital Signs Vital Signs Temp Pulse Resp BP Pulse Ox 08/08/18 17:57 97.1 F 67 15 116/71 100 - Laboratory Result Diagrams: 08/08/18 19:34 08/08/18 19:34 Lab Statement: Any lab studies that have been ordered have been reviewed, and results considered in the medical decision making process. Complex Multi-Symp Course/Dx Assessment/Plan: This patient is a 47 year old F presenting to [facility] accompanied by a male with a chief complaint of a general illness that began a week ago. The patient reports nausea, DAMON, a full feeling in her ears, suprapubic pain, and diarrhea. The patient rates the pain 7/10 in severity. Patient denies urinary sx. Hx ulcers, GERD, and ovarian cysts. The patient was eating in the waiting room while waiting to be escorted into a room. Bloodwork obtained. In the ED course the patient was given toradol, IV fluids, and Reglan. She had improvement with these medications. Patient will be discharged with prescription for bendaryl and follow up from PCP. The patient is agreeable with this plan. - Diagnoses Provider Diagnoses: Gastroenteritis Discharge - Sign-Out/Discharge Documenting (check all that apply): Patient Departure - Discharge Plan Condition: Stable Disposition: HOME Prescriptions: Dicyclomine CAP* [Bentyl CAP*] 10 mg PO TID #30 cap Patient Education Materials: Gastroenteritis (ED) Referrals: Magaly Acevedo [employer] [Primary Care Provider] - 3 Days Additional Instructions: RETURN TO THE EMERGENCY DEPARTMENT FOR CHANGING OR WORSENING SYMPTOMS - Attestation Statements Document Initiated by Scribe: Yes Documenting Scribe: Tavon Alberts Provider For Whom Giorgio is Documenting (Include Credential): Giana Berrios MD Scribe Attestation: Tavon Pisano , scribed for Giana Berrios MD on 08/08/18 at 2096. Status of Scribe Document: Ready
[2018-08-08 20:33] LABS: ABS Basophils 0 10^3/ul (0-0.2); ABS Eosinophils 0.1 10^3/ul (0-0.6); ABS Lymphocytes 1.5 10^3/ul (1.0-4.8); ABS Monocytes 0.8 10^3/ul (0-0.8); ABS Neutrophils 6.6 10^3/ul (1.5-7.7); ABS Nucleated RBC 0 10^3/ul; Eosinophil % 1.2 %; Hematocrit 43 % (35-47); Hemoglobin 14.1 g/dl (12.0-16.0); Lymphocyte % 16.8 %; Mean Corpuscular HGB Conc 33 g/dl (31-36); Mean Corpuscular Hemoglobin 31 pg (27-31); Mean Corpuscular Volume 95 fL (80-97); Mean Platelet Volume 7.8 fL (7.4-10.4); Nucleated Red Blood Cells % 0.1; Platelet Count 314 10^3/ul (150-450); Red Blood Count 4.51 10^6/ul (4.00-5.40); Red Cell Distribution Width 14 % (10.5-15); White Blood Count 9.1 10^3/ul (3.5-10.8)
[2018-08-08 20:45] LABS: Activated Partial Thrombo Time 30.4 seconds (26.0-36.3); INR 0.98 (0.77-1.02)
[2018-08-08 20:50] LABS: ALT 10 U/L (7-52); AST 15 U/L (13-39); Albumin 3.7 g/dL (3.2-5.2); Albumin/Globulin Ratio 1.4 (1-3); Alkaline Phosphatase 67 U/L (34-104); Amylase 44 U/L (29-103); Anion Gap 5 mmol/L (2-11); BUN/Creatinine Ratio 13.5 (8-20); Blood Urea Nitrogen 13 mg/dL (6-24); C Reactive Protein < 1.00 mg/L (<8.01); CO2 Carbon Dioxide 28 mmol/L (22-32); Calcium 8.5 mg/dL (8.6-10.3); Chloride 107 mmol/L (101-111); EGFR Non-African American 62.6 (>60); Globulin 2.7 g/dL (2-4); Glucose 76 mg/dL (70-100); Magnesium 2.1 mg/dL (1.9-2.7); Potassium 3.8 mmol/L (3.5-5.0); Sodium 140 mmol/L (135-145); Total Protein 6.4 g/dL (6.4-8.9)
[2018-08-08 20:57] LABS: HCG Pregnancy < 0.60 mIU/mL
[2018-08-08 21:44] VITALS: BP 126/65
== END 2018-08-08 21:44 | disposition home or self-care (01) ==
LOC: ED 17:44
DX: K52.9 Noninfective gastroenteritis and colitis, unspecified (principal); R11.0 Nausea; R19.7 Diarrhea, unspecified; R10.9 Unspecified abdominal pain; R51 Headache
CPT/HCPCS: 36415; 80053; 82150; 83690; 83735; 84702; 85025; 85610; 85730; 86140; 96361; 96374; 96375; 99282; J1885; J2765

== ENCOUNTER → 2018-09-28 14:23 | Emergency (ER) | payer MEDICARE, MEDICAID ==
[~2018-09-28 14:23] MED LIST changes: -Acetaminophen TAB* 325 MG PO ONE; -Al Hydrox/Mg Hydrox/Simet LIQ* 30 ML UDC PO ONE; +Ketorolac INJ* 30 MG/ML 1 ML VIAL IV ONE; -Lidocaine 2% VISCOUS* 15 ML UDC PO ONE; +Metoclopramide IV* 5 MG/ML 2 ML VIAL IV ONE; +NS 0.9% 1000 ML** 1,000 ML IV ONE
[2018-09-28 14:26] VITALS: BP 124/81
[2018-09-28 17:41] LABS: ABS Basophils 0 10^3/ul (0-0.2); ABS Eosinophils 0.2 10^3/ul (0-0.6); ABS Lymphocytes 1.9 10^3/ul (1.0-4.8); ABS Monocytes 0.6 10^3/ul (0-0.8); ABS Neutrophils 5.2 10^3/ul (1.5-7.7); ABS Nucleated RBC 0 10^3/ul; Eosinophil % 2.1 %; Hematocrit 44 % (35-47); Hemoglobin 14.6 g/dl (12.0-16.0); Lymphocyte % 23.8 %; Mean Corpuscular HGB Conc 33 g/dl (31-36); Mean Corpuscular Hemoglobin 31 pg (27-31); Mean Corpuscular Volume 92 fL (80-97); Mean Platelet Volume 7.9 fL (7.4-10.4); Nucleated Red Blood Cells % 0.1; Platelet Count 304 10^3/ul (150-450); Red Blood Count 4.74 10^6/ul (4.00-5.40); Red Cell Distribution Width 13 % (10.5-15); White Blood Count 7.9 10^3/ul (3.5-10.8)
--- NOTE | 2018-09-28 17:45 | ED ---
Nausea/Vomiting/Diarrhea HPI - HPI Summary HPI Summary: Patient complains of lightheadedness, nausea, stomachache 2 days. Abdominal pain is diffuse, constant, sharp, worst 8/10, currently 2 out of 10. Denies fever, cough, sore throat, CP, SOB, diarrhea, change in urine, change in BM. Medical history is HTN, acid reflux. Abdominal surgical history is none. - History of Current Complaint Chief Complaint: EDGeneral Stated Complaint: GENERAL ILLNESS Time Seen by Provider: 09/28/18 16:37 Hx Obtained From: Patient Hx Last Menstrual Period: 5/days Onset/Duration: Gradual Onset, Lasting Days Timing: Constant Severity Initially: Mild Severity Currently: Mild Pain Intensity: 2 Pain Scale Used: 0-10 Numeric Location: Diffuse Aggravating Factor(s): Nothing Alleviating Factor(s): Nothing Nausea/Vomiting Presence: Nauseated Diarrhea Presence: No - Allergies/Home Medications Allergies/Adverse Reactions: Allergies Allergy/AdvReac Type Severity Reaction Status Date / Time No Known Allergies Allergy Verified 09/28/18 14:26 PMH/Surg Hx/FS Hx/Imm Hx Endocrine/Hematology History: Denies: Hx Anticoagulant Therapy, Hx Blood Disorders, Hx Diabetes Cardiovascular History: Denies: Hx Hypertension GI History: Reports: Hx Gastroesophageal Reflux Disease, Hx Ulcer - gastric History: Denies: Hx Dialysis, Hx Renal Disease Sensory History: Denies: Hx Deafness Opthamlomology History: Denies: Hx Eye Prosthesis Neurological History: Denies: Hx Dementia Psychiatric History: Reports: Hx Anxiety, Hx Depression - Surgical History Surgery Procedure, Year, and Place: n/a - Immunization History Date of Tetanus Vaccine: unk Date of Influenza Vaccine: none Infectious Disease History: No Infectious Disease History: Denies: Hx of Known/Suspected MRSA, Traveled Outside the [place] in Last 30 Days - Family History Known Family History: Positive: Cardiac Disease - father , Diabetes, Renal Disease - mother kidney failure, Other - [place] - Social History Alcohol Use: None Hx Substance Use: No Substance Use Type: Reports: None Substance Use Comment - Amount & Last Used: pt denies Hx Tobacco Use: No Smoking Status (MU): Never Smoked Tobacco Review of Systems Constitutional: Negative Eyes: Negative ENT: Negative Cardiovascular: Negative Respiratory: Negative Positive: Abdominal Pain, Nausea Genitourinary: Negative Musculoskeletal: Negative Skin: Negative Neurological: Negative Psychological: Normal All Other Systems Reviewed And Are Negative: Yes Physical Exam - Summary Physical Exam Summary: Patient has mild diffuse tenderness on palpation of abdomen. Physical exam otherwise unremarkable. Triage Information Reviewed: Yes Vital Signs On Initial Exam: Initial Vitals Temp Pulse Resp BP Pulse Ox 97.9 F 61 14 124/81 98 09/28/18 14:24 09/28/18 14:24 09/28/18 14:24 09/28/18 14:24 09/28/18 14:24 Vital Signs Reviewed: Yes Appearance: Positive: Well-Appearing Skin: Positive: Warm Head/Face: Positive: Normal Head/Face Inspection Eyes: Positive: Normal ENT: Positive: Normal ENT inspection Neck: Positive: Supple Respiratory/Lung Sounds: Positive: Clear to Auscultation Cardiovascular: Positive: Normal Abdomen Description: Positive: Other: Musculoskeletal: Positive: Normal Neurological: Positive: Normal Psychiatric: Positive: Normal AVPU Assessment: Alert - Rtiesh Coma Scale Best Eye Response: 4 - Spontaneous Best Motor Response: 6 - Obeys Commands Best Verbal Response: 5 - Oriented Coma Scale Total: 15 Diagnostics - Vital Signs Vital Signs Temp Pulse Resp BP Pulse Ox 09/28/18 14:24 97.9 F 61 14 124/81 98 - Laboratory Lab Results: Lab Results 09/28/18 Range/Units 17:11 WBC 7.9 (3.5-10.8) 10^3/ul RBC 4.74 (4.00-5.40) 10^6/ul Hgb 14.6 (12.0-16.0) g/dl Hct 44 (35-47) % MCV 92 (80-97) fL MCH 31 (27-31) pg MCHC 33 (31-36) g/dl RDW 13 (10.5-15) % Plt Count 304 (150-450) 10^3/ul MPV 7.9 (7.4-10.4) fL Neut % (Auto) 66.7 % Lymph % (Auto) 23.8 % [place] % (Auto) 7.0 % Eos % (Auto) 2.1 % Baso % (Auto) 0.4 % Absolute Neuts (auto) 5.2 (1.5-7.7) 10^3/ul Absolute Lymphs (auto) 1.9 (1.0-4.8) 10^3/ul Absolute Monos (auto) 0.6 (0-0.8) 10^3/ul Absolute Eos (auto) 0.2 (0-0.6) 10^3/ul Absolute Basos (auto) 0 (0-0.2) 10^3/ul Absolute Nucleated RBC 0 10^3/ul Nucleated RBC % 0.1 Result Diagrams: 09/28/18 17:11 09/28/18 17:11 Lab Statement: Any lab studies that have been ordered have been reviewed, and results considered in the medical decision making process. Naus/Vom/Diarrhea Course/Dx - Course Course Of Treatment: Patient complains of lightheadedness, nausea, stomachache 2 days. Abdominal pain is diffuse, constant, sharp, worst 8/10, currently 2 out of 10. Denies fever, cough, sore throat, CP, SOB, diarrhea, change in urine , change in BM. Medical history is HTN, acid reflux. Abdominal surgical history is none. Physical exam:Patient has mild diffuse tenderness on palpation of abdomen. Physical exam otherwise unremarkable. Vital signs within normal limits. Labs unremarkable. Patient received 1L normal saline, Reglan 10 mg IV, Toradol 30 mg IV, states she felt better and signed out AMA. - Differential Dx/Diagnosis Provider Diagnosis: Nausea, Abdominal pain Discharge - Sign-Out/Discharge Documenting (check all that apply): Patient Departure Patient Received Moderate/Deep Sedation with Procedure: No - Discharge Plan Condition: Stable Disposition: AGAINST MEDICAL ADVICE Referrals: Magaly Acevedo NP [Primary Care Provider] - - Billing Disposition and Condition Condition: STABLE Disposition: Against Medical Advice
[2018-09-28 18:07] LABS: Albumin/Globulin Ratio 1.5 (1-3); BUN/Creatinine Ratio 23.1 (8-20); Calcium 8.9 mg/dL (8.6-10.3); EGFR African American 96.2 (>60); EGFR Non-African American 79.5 (>60); Globulin 2.7 g/dL (2-4); Potassium 4.2 mmol/L (3.5-5.0); Total Bilirubin 0.5 mg/dL (0.2-1.0); Total Protein 6.7 g/dL (6.4-8.9)
[2018-09-28 18:12] LABS: HCG Pregnancy 1.17 mIU/mL
== END | disposition left against medical advice (07) ==
LOC: ED 14:23
DX: R11.0 Nausea (principal); R10.9 Unspecified abdominal pain; I10 Essential (primary) hypertension; K21.9 Gastro-esophageal reflux disease without esophagitis; F32.9 Major depressive disorder, single episode, unspecified; Z53.21 Procedure and treatment not carried out due to patient leaving prior to being seen by health care provider
CPT/HCPCS: 36415; 80053; 83605; 83690; 84702; 85025; 86140; 96361; 96374; 96375; 99282; J1885; J2765

== ENCOUNTER → 2018-10-31 17:33 | Emergency (ER) | payer MEDICARE, MEDICAID ==
[2018-10-31 17:42] VITALS: BP 143/82
== END | disposition left against medical advice (07) ==
LOC: ED 17:33
DX: M25.572 Pain in left ankle and joints of left foot (principal); Z53.21 Procedure and treatment not carried out due to patient leaving prior to being seen by health care provider

== ENCOUNTER 2018-12-27 17:48 | Emergency (ER) | payer MEDICARE, MEDICAID ==
[2018-12-27 18:07] VITALS: BP 115/80
--- NOTE | 2018-12-27 18:36 | ED ---
Throat Pain/Nasal Congestion - HPI Summary HPI Summary: 48 yr old female with the complaint of left ear pain, and feels like things are snap, crackle and pop. She reports onset over the past 2-3 days. She denies runny nose, cough, sore throat. She denies fever. She has no other complaints. - History of Current Complaint Chief Complaint: UCEar Time Seen by Provider: 12/27/18 18:23 - Allergies/Home Medications Allergies/Adverse Reactions: Allergies Allergy/AdvReac Type Severity Reaction Status Date / Time No Known Allergies Allergy Verified 12/27/18 18:02 PMH/Surg Hx/FS Hx/Imm Hx Endocrine/Hematology History: Denies: Hx Anticoagulant Therapy, Hx Blood Disorders, Hx Diabetes Cardiovascular History: Denies: Hx Hypertension GI History: Reports: Hx Gastroesophageal Reflux Disease, Hx Ulcer - gastric History: Denies: Hx Dialysis, Hx Renal Disease Sensory History: Denies: Hx Eye Prosthesis, Hx Deafness Opthamlomology History: Denies: Hx Eye Prosthesis Neurological History: Denies: Hx Dementia Psychiatric History: Reports: Hx Anxiety, Hx Depression - Surgical History Surgery Procedure, Year, and Place: n/a - Immunization History Date of Tetanus Vaccine: unk Date of Influenza Vaccine: none Infectious Disease History: No Infectious Disease History: Denies: Hx of Known/Suspected MRSA, Traveled Outside the [place] in Last 30 Days - Family History Known Family History: Positive: Cardiac Disease - father , Diabetes, Renal Disease - mother kidney failure, Other - [place] - Social History Occupation: Disabled Alcohol Use: None Hx Substance Use: No Substance Use Type: Reports: None Substance Use Comment - Amount & Last Used: pt denies Hx Tobacco Use: No Smoking Status (MU): Never Smoked Tobacco Review of Systems Constitutional: Negative Positive: Ear Ache All Other Systems Reviewed And Are Negative: Yes Physical Exam Triage Information Reviewed: Yes Vital Signs On Initial Exam: Initial Vitals Temp Pulse Resp BP Pulse Ox 97.7 F 76 20 115/80 98 12/27/18 18:04 12/27/18 18:04 12/27/18 18:04 12/27/18 18:04 12/27/18 18:04 Vital Signs Reviewed: Yes Appearance: Positive: Well-Appearing, No Pain Distress Skin: Positive: Warm, Skin Color Reflects Adequate Perfusion Head/Face: Positive: Normal Head/Face Inspection Eyes: Positive: EOMI, UMA ENT: Positive: Pharynx normal, TM red - left with effusion. Negative: Nasal congestion, Nasal drainage Neck: Positive: Nontender Respiratory/Lung Sounds: Positive: Clear to Auscultation, Breath Sounds Present Cardiovascular: Positive: RRR. Negative: Murmur Abdomen Description: Negative: Distended Musculoskeletal: Positive: Strength/ROM Intact Neurological: Positive: Sensory/Motor Intact, Alert, Oriented to Person Place, Time, CN Intact II-III, Normal Gait, Speech Normal Psychiatric: Positive: Normal - Ney Coma Scale Best Eye Response: 4 - Spontaneous Best Motor Response: 6 - Obeys Commands Best Verbal Response: 5 - Oriented Coma Scale Total: 15 Diagnostics - Vital Signs Vital Signs Temp Pulse Resp BP Pulse Ox 12/27/18 18:04 97.7 F 76 20 115/80 98 - Laboratory Lab Statement: Any lab studies that have been ordered have been reviewed, and results considered in the medical decision making process. EENT Course/Dx - Course Course Of Treatment: 48 yr old with left OM. Rx amox. DC home - Diagnoses Provider Diagnoses: Left otitis media Discharge - Sign-Out/Discharge Documenting (check all that apply): Patient Departure All imaging exams completed and their final reports reviewed: No Studies - Discharge Plan Condition: Good Disposition: HOME Prescriptions: Amoxicillin PO (*) [Amoxicillin 500 MG CAP*] 500 mg PO TID #30 cap Patient Education Materials: Ear Infection (ED) Referrals: Magaly Acevedo NP [Primary Care Provider] - 2 Days - Billing Disposition and Condition Condition: GOOD Disposition: Home
== END 2018-12-27 18:36 | disposition home or self-care (01) ==
LOC: UCCORT 17:48
DX: H66.92 Otitis media, unspecified, left ear (principal)
CPT/HCPCS: 99212; G0463

== ENCOUNTER 2018-12-29 22:31 | Emergency (ER) | payer MEDICARE, MEDICAID ==
--- NOTE | 2018-12-30 00:51 | ED ---
Lower Extremity - HPI Summary HPI Summary: Patient complains of twisting left ankle today while walking. Denies any other pains, injuries or symptoms. - History of Current Complaint Chief Complaint: EDExtremityLower Stated Complaint: FELL AND TWISTED ANKLE PER PT Time Seen by Provider: 12/30/18 00:28 Hx Obtained From: Patient Hx Last Menstrual Period: last mo Mechanism Of Injury: Twisted Onset of Pain: Immediate Onset/Duration: Hours Severity Initially: Severe Severity Currently: Severe Pain Intensity: 8 Pain Scale Used: 0-10 Numeric Timing: Constant Location: Is Discrete @ Character Of Pain: Throbbing Associated Signs And Symptoms: Positive: Negative Aggravating Factor(s): Ambulation, Weight Bearing Alleviating Factor(s): Rest Able to Bear Weight: Yes - Allergies/Home Medications Allergies/Adverse Reactions: Allergies Allergy/AdvReac Type Severity Reaction Status Date / Time No Known Allergies Allergy Verified 12/29/18 22:36 PMH/Surg Hx/FS Hx/Imm Hx Endocrine/Hematology History: Denies: Hx Anticoagulant Therapy, Hx Blood Disorders, Hx Diabetes Cardiovascular History: Denies: Hx Hypertension GI History: Reports: Hx Gastroesophageal Reflux Disease, Hx Ulcer - gastric History: Denies: Hx Dialysis, Hx Renal Disease Sensory History: Denies: Hx Eye Prosthesis Opthamlomology History: Denies: Hx Eye Prosthesis Neurological History: Denies: Hx Dementia Psychiatric History: Reports: Hx Anxiety, Hx Depression - Surgical History Surgery Procedure, Year, and Place: n/a - Immunization History Date of Tetanus Vaccine: unk Date of Influenza Vaccine: none Infectious Disease History: No Infectious Disease History: Denies: Hx of Known/Suspected MRSA, Traveled Outside the [place] in Last 30 Days - Family History Known Family History: Positive: Cardiac Disease - father , Diabetes, Renal Disease - mother kidney failure, Other - [place] - Social History Alcohol Use: None Hx Substance Use: No Substance Use Type: Reports: None Substance Use Comment - Amount & Last Used: pt denies Hx Tobacco Use: No Smoking Status (MU): Never Smoked Tobacco Review of Systems Constitutional: Negative Eyes: Negative ENT: Negative Cardiovascular: Negative Respiratory: Negative Gastrointestinal: Negative Genitourinary: Negative Musculoskeletal: Other Skin: Negative Neurological: Negative Psychological: Normal All Other Systems Reviewed And Are Negative: Yes Physical Exam - Summary Physical Exam Summary: No swelling, erythema, ecchymosis, deformity, wound noted to left ankle or left foot. No pain with palpation of left foot. Mild pain with palpation of left ankle. Nontender. Triage Information Reviewed: Yes Vital Signs On Initial Exam: Initial Vitals Temp Pulse Resp BP Pulse Ox 99.2 F 60 16 113/75 99 12/29/18 22:33 12/29/18 22:33 12/29/18 22:33 12/29/18 22:33 12/29/18 22:33 Vital Signs Reviewed: Yes Appearance: Positive: Well-Appearing Skin: Positive: Warm Head/Face: Positive: Normal Head/Face Inspection Eyes: Positive: Normal Neck: Positive: Supple Respiratory/Lung Sounds: Positive: Clear to Auscultation Cardiovascular: Positive: Normal Abdomen Description: Positive: Nontender Musculoskeletal: Positive: Normal Neurological: Positive: Normal Psychiatric: Positive: Normal AVPU Assessment: Alert - Ritesh Coma Scale Best Eye Response: 4 - Spontaneous Best Motor Response: 6 - Obeys Commands Best Verbal Response: 5 - Oriented Coma Scale Total: 15 Diagnostics - Vital Signs Vital Signs Temp Pulse Resp BP Pulse Ox 12/29/18 22:33 99.2 F 60 16 113/75 99 - Laboratory Lab Statement: Any lab studies that have been ordered have been reviewed, and results considered in the medical decision making process. Lower Extremity Course/Dx - Course Course Of Treatment: Patient complains of twisting left ankle today while walking. Denies any other pains, injuries or symptoms. Physical exam:No swelling, erythema, ecchymosis, deformity, wound noted to left ankle or left foot. No pain with palpation of left foot. Mild pain with palpation of left ankle. Nontender. Vital signs within normal limits. X-ray negative for fracture. Ankle gel splint administered by nurse. Advised patient to ice and ibuprofen. Follow-up with orthopedics if symptoms persist. Patient understands and approves of the plan. - Diagnoses Provider Diagnoses: Ankle sprain Discharge - Sign-Out/Discharge Documenting (check all that apply): Patient Departure Patient Received Moderate/Deep Sedation with Procedure: No - Discharge Plan Condition: Stable Disposition: HOME Patient Education Materials: Ankle Sprain (ED), Ankle Stirrup Splint (ED) Referrals: No Primary Care Phys,NOPCP [Primary Care Provider] - Additional Instructions: Wear splint to support ankle while it heals. Use ice and ibuprofen for pain and swelling. Increase weightbearing as tolerated. If pain persists more than 1 week follow-up with orthopedics Dr. Roberts for further evaluation. Return to the ED for any new or worsening symptoms. - Billing Disposition and Condition Condition: STABLE Disposition: Home
[2018-12-30 01:03] VITALS: BP 137/59
== END 2018-12-30 00:59 | disposition home or self-care (01) ==
LOC: ED 22:31
DX: S93.402A Sprain of unspecified ligament of left ankle, initial encounter (principal); X50.9XXA Other and unspecified overexertion or strenuous movements or postures, initial encounter; Y92.9 Unspecified place or not applicable
CPT/HCPCS: 99282